=== PATIENT | female | born 1980 | race Caucasian/White ===

== ENCOUNTER 2018-08-02 09:24 | Outpatient (CLI) | payer OTHER, SELFPAY ==
--- NOTE | 2018-08-07 16:22 | W.PREOPHP ---
Documented by User: Sylvia Garza 08/07/18 17:09 Documented by User: Sylvia Garza 08/07/18 17:09 Date of service: Ms. Parkinson is a 38-year-old female who presents to clinic for preoperative visit for scheduled left ulnar nerve decompression with Dr. Navarro on August 13, 2018. Patient is right-hand dominant. Patient reports onset of left finger numbness and tingling in summer 2017. Patient reports she was unable to feel anything with her left little finger and ring finger, she describes a constant numbness with occasional tingling that radiates from the palm out distally to the fingers. Patient reports she was dropping objects when symptoms first started. She was referred to neurology where she had nerve conduction studies done which showed moderate left ulnar denervation at the elbow and was referred to orthopedics. Patient was last seen in orthopedic clinic on July 17, 2018 at which time recommendations were nighttime bracing and surgery if she didn't have symptom improvement. Patient reports since she was last seen she has continued to have constant numbness and tingling of the left little finger and ring finger despite wrapping her elbow at night. She denies any change in her symptoms. She denies symptoms waking her up in the middle the night. Denies any numbness in her other 3 fingers. Pertinent Surgical Information Past medical history pertinent for situational anxiety, hypertriglyceridemia, abnormal uterine bleeding, cubital tunnel syndrome on the left Denies past medical history of: Hypertension, stroke, cardiac issues, angina, asthma, COPD, sleep apnea, renal issues, liver issues, hepatitis, gastrointestinal issues, ulcers, bleeding disorders, seizures, migraines, depression, diabetes, autoimmune disorders, thyroid issues Denies prior complications from surgery or anesthesia. Review of Systems Constitutional Eyes ENT Cardiovascular Respiratory Gastrointestinal Genitourinary Musculoskeletal Neurologic Psychiatric Allergic/Immunologic PFSH Family History Mother Depression Father Depression Hyperlipidemia Hypertension Sister Substance abuse Depression Grandmother Personal history of malignant neoplasm Grandmother Personal history of malignant neoplasm Medical History Abnormal uterine bleeding (AUB) (Acute) Social History household members: current occupational status: current occupation: frequency: duration: Smoking/Tobacco Use Status: alcohol intake: details: substance use type: seatbelt use: Surgical History History of dilation and curettage (Acute) History of right salpingo-oophorectomy (Acute) Endometrial Biopsy (05/16/18) Female Reproductive History Menstrual control method: Meds Home Medications Medication Instructions Recorded Confirmed Type [id number]-minerals 1 tab-cap PO DAILY tab-cap 02/26/13 08/07/18 History [Women's One Daily] ibuprofen 200 - 600 mg PO PRN PRN 08/02/18 08/07/18 History Allergies Allergy/AdvReac Type Severity Reaction Status Date / Time No Known Allergies Allergy Unverified 08/07/18 16:32 Exam Const General: HENMT Head: Ears: General nose exam: Face and sinus: Mouth: Teeth and gingiva: Throat: Eyes General: Pupils: EOM: Neck Neck: Carotids: Lymphatic: Resp Effort & Inspection: Auscultation: Cardio Heart Sounds: Pulses: GI Palpation: Auscultation: Skin General skin exam: Extrem Other: Left elbow examination: Skin is intact without areas of erythema, edema, lesions or rashes. Active range of motion yields full extension and flexion 140 degrees. Supination and pronation motions are intact and equal to contralateral side. Decreased sensation to light touch in ulnar nerve distribution. Sensation intact over radial and median nerve distribution. Tinel's sign at the elbow elicits tingling sensation in the palmar aspect of left little finger and left ring finger. Active range of motion of left hand is intact. Results Imaging Additional studies: Nerve conduction study from May 30, 2018?conclusion: Moderate left ulnar denervation at elbow Documented by User: Mat Navarro MD 08/08/18 06:37 Ms. Parkinson is a 38-year-old female who presents to clinic for preoperative visit for scheduled left ulnar nerve decompression with Dr. Navarro on August 13, 2018. Patient is right-hand dominant. Patient reports onset of left finger numbness and tingling in summer 2017. Patient reports she was unable to feel anything with her left little finger and ring finger, she describes a constant numbness with occasional tingling that radiates from the palm out distally to the fingers. Patient reports she was dropping objects when symptoms first started. She was referred to neurology where she had nerve conduction studies done which showed moderate left ulnar denervation at the elbow and was referred to orthopedics. Patient was last seen in orthopedic clinic on July 17, 2018 at which time recommendations were nighttime bracing and surgery if she didn't have symptom improvement. Patient reports since she was last seen she has continued to have constant numbness and tingling of the left little finger and ring finger despite wrapping her elbow at night. She denies any change in her symptoms. She denies symptoms waking her up in the middle the night. Denies any numbness in her other 3 fingers. PFSH Family History Mother Depression Father Depression Hyperlipidemia Hypertension Sister Substance abuse Depression Grandmother Personal history of malignant neoplasm Grandmother Personal history of malignant neoplasm Medical History Abnormal uterine bleeding (AUB) (Acute) Social History household members: family current occupational status: employed current occupation: [employer] - [employer] frequency: 5-6 times per week duration: 45-60 minutes/day Smoking/Tobacco Use Status: Current every day tobacco type: cigarettes alcohol intake: current alcohol intake frequency: a few times a week Alcohol type: wine details: 1-2 weekly substance use type: does not use seatbelt use: always Surgical History History of dilation and curettage (Acute) History of right salpingo-oophorectomy (Acute) Endometrial Biopsy (05/16/18) Meds Home Medications Medication Instructions Recorded Confirmed Type [id number]-minerals 1 tab-cap PO DAILY tab-cap 02/26/13 08/07/18 History [Women's One Daily] ibuprofen 200 - 600 mg PO PRN PRN 08/02/18 08/07/18 History Allergies Allergy/AdvReac Type Severity Reaction Status Date / Time No Known Allergies Allergy Unverified 08/07/18 16:32 Documented by User: Mat Navarro MD 08/08/18 06:37 Documented by User: Sylvia Garza 08/07/18 17:09 Date of service: Ms. Parkinson is a 38-year-old female who presents to clinic for preoperative visit for scheduled left ulnar nerve decompression with Dr. Navarro on August 13, 2018. Patient is right-hand dominant. Patient reports onset of left finger numbness and tingling in summer 2017. Patient reports she was unable to feel anything with her left little finger and ring finger, she describes a constant numbness with occasional tingling that radiates from the palm out distally to the fingers. Patient reports she was dropping objects when symptoms first started. She was referred to neurology where she had nerve conduction studies done which showed moderate left ulnar denervation at the elbow and was referred to orthopedics. Patient was last seen in orthopedic clinic on July 17, 2018 at which time recommendations were nighttime bracing and surgery if she didn't have symptom improvement. Patient reports since she was last seen she has continued to have constant numbness and tingling of the left little finger and ring finger despite wrapping her elbow at night. She denies any change in her symptoms. She denies symptoms waking her up in the middle the night. Denies any numbness in her other 3 fingers. Pertinent Surgical Information Past medical history pertinent for situational anxiety, hypertriglyceridemia, abnormal uterine bleeding, cubital tunnel syndrome on the left Denies past medical history of: Hypertension, stroke, cardiac issues, angina, asthma, COPD, sleep apnea, renal issues, liver issues, hepatitis, gastrointestinal issues, ulcers, bleeding disorders, seizures, migraines, depression, diabetes, autoimmune disorders, thyroid issues Denies prior complications from surgery or anesthesia. Review of Systems Constitutional Eyes ENT Cardiovascular Respiratory Gastrointestinal Genitourinary Musculoskeletal Neurologic Psychiatric Allergic/Immunologic PFSH Family History Mother Depression Father Depression Hyperlipidemia Hypertension Sister Substance abuse Depression Grandmother Personal history of malignant neoplasm Grandmother Personal history of malignant neoplasm Medical History Abnormal uterine bleeding (AUB) (Acute) Social History household members: current occupational status: current occupation: frequency: duration: Smoking/Tobacco Use Status: alcohol intake: details: substance use type: seatbelt use: Surgical History History of dilation and curettage (Acute) History of right salpingo-oophorectomy (Acute) Endometrial Biopsy (05/16/18) Female Reproductive History Menstrual control method: Meds Home Medications Medication Instructions Recorded Confirmed Type [id number]-minerals 1 tab-cap PO DAILY tab-cap 02/26/13 08/07/18 History [Women's One Daily] ibuprofen 200 - 600 mg PO PRN PRN 08/02/18 08/07/18 History Allergies Allergy/AdvReac Type Severity Reaction Status Date / Time No Known Allergies Allergy Unverified 08/07/18 16:32 Exam Const General: HENMT Head: Ears: General nose exam: Face and sinus: Mouth: Teeth and gingiva: Throat: Eyes General: Pupils: EOM: Neck Neck: Carotids: Lymphatic: Resp Effort & Inspection: Auscultation: Cardio Heart Sounds: Pulses: GI Palpation: Auscultation: Skin General skin exam: Extrem Other: Left elbow examination: Skin is intact without areas of erythema, edema, lesions or rashes. Active range of motion yields full extension and flexion 140 degrees. Supination and pronation motions are intact and equal to contralateral side. Decreased sensation to light touch in ulnar nerve distribution. Sensation intact over radial and median nerve distribution. Tinel's sign at the elbow elicits tingling sensation in the palmar aspect of left little finger and left ring finger. Active range of motion of left hand is intact. Results Imaging Additional studies: Nerve conduction study from May 30, 2018?conclusion: Moderate left ulnar denervation at elbow Documented by User: Mat Navarro MD 08/08/18 06:37 Ms. Parkinson is a 38-year-old female who presents to clinic for preoperative visit for scheduled left ulnar nerve decompression with Dr. Navarro on August 13, 2018. Patient is right-hand dominant. Patient reports onset of left finger numbness and tingling in summer 2017. Patient reports she was unable to feel anything with her left little finger and ring finger, she describes a constant numbness with occasional tingling that radiates from the palm out distally to the fingers. Patient reports she was dropping objects when symptoms first started. She was referred to neurology where she had nerve conduction studies done which showed moderate left ulnar denervation at the elbow and was referred to orthopedics. Patient was last seen in orthopedic clinic on July 17, 2018 at which time recommendations were nighttime bracing and surgery if she didn't have symptom improvement. Patient reports since she was last seen she has continued to have constant numbness and tingling of the left little finger and ring finger despite wrapping her elbow at night. She denies any change in her symptoms. She denies symptoms waking her up in the middle the night. Denies any numbness in her other 3 fingers. PFSH Family History Mother Depression Father Depression Hyperlipidemia Hypertension Sister Substance abuse Depression Grandmother Personal history of malignant neoplasm Grandmother Personal history of malignant neoplasm Medical History Abnormal uterine bleeding (AUB) (Acute) Social History household members: family current occupational status: employed current occupation: [employer] - [employer] frequency: 5-6 times per week duration: 45-60 minutes/day Smoking/Tobacco Use Status: Current every day tobacco type: cigarettes alcohol intake: current alcohol intake frequency: a few times a week Alcohol type: wine details: 1-2 weekly substance use type: does not use seatbelt use: always Surgical History History of dilation and curettage (Acute) History of right salpingo-oophorectomy (Acute) Endometrial Biopsy (05/16/18) Meds Home Medications Medication Instructions Recorded Confirmed Type [id number]-[id number]-minerals 1 tab-cap PO DAILY tab-cap 02/26/13 08/07/18 History [Women's One Daily] ibuprofen 200 - 600 mg PO PRN PRN 08/02/18 08/07/18 History Allergies Allergy/AdvReac Type Severity Reaction Status Date / Time No Known Allergies Allergy Unverified 08/07/18 16:32
--- NOTE | 2018-08-07 16:32 | HPE_ITS ---
Addendum entered and electronically signed by Sylvia Garza 08/07/18 17:09: Error was made under Review of Systems - Musculoskeletal Correction: Review of Systems - Musculoskeletal: Reports as per HPI, reports numbness, reports tingling Original Note: Documented by User: Sylvia Garza 08/07/18 17:09 Documented by User: Sylvia Garza 08/07/18 17:09 Date of service: Ms. Parkinson is a 38-year-old female who presents to clinic for preoperative visit for scheduled left ulnar nerve decompression with Dr. Navarro on August 13, 2018. Patient is right-hand dominant. Patient reports onset of left finger numbness and tingling in summer 2017. Patient reports she was unable to feel anything with her left little finger and ring finger, she describes a constant numbness with occasional tingling that radiates from the palm out distally to the fingers. Patient reports she was dropping objects when symptoms first started. She was referred to neurology where she had nerve conduction studies done which showed moderate left ulnar denervation at the elbow and was referred to orthopedics. Patient was last seen in orthopedic clinic on July 17, 2018 at which time recommendations were nighttime bracing and surgery if she didn't have symptom improvement. Patient reports since she was last seen she has continued to have constant numbness and tingling of the left little finger and ring finger despite wrapping her elbow at night. She denies any change in her symptoms. She denies symptoms waking her up in the middle the night. Denies any numbness in her other 3 fingers. Pertinent Surgical Information Past medical history pertinent for situational anxiety, hypertriglyceridemia, abnormal uterine bleeding, cubital tunnel syndrome on the left Denies past medical history of: Hypertension, stroke, cardiac issues, angina, asthma, COPD, sleep apnea, renal issues, liver issues, hepatitis, gastrointestinal issues, ulcers, bleeding disorders, seizures, migraines, depression, diabetes, autoimmune disorders, thyroid issues Denies prior complications from surgery or anesthesia. Review of Systems Constitutional Eyes ENT Cardiovascular Respiratory Gastrointestinal Genitourinary Musculoskeletal Neurologic Psychiatric Allergic/Immunologic PFSH Family History Mother Depression Father Depression Hyperlipidemia Hypertension Sister Substance abuse Depression Grandmother Personal history of malignant neoplasm Grandmother Personal history of malignant neoplasm Medical History Abnormal uterine bleeding (AUB) (Acute) Social History household members: current occupational status: current occupation: frequency: duration: Smoking/Tobacco Use Status: alcohol intake: details: substance use type: seatbelt use: Surgical History History of dilation and curettage (Acute) History of right salpingo-oophorectomy (Acute) Endometrial Biopsy (05/16/18) Female Reproductive History Menstrual control method: Meds Home Medications Medication Instructions Recorded Confirmed Type kwapiptwdzxs-Va-owda-minerals 1 tab-cap PO DAILY tab-cap 02/26/13 08/07/18 History [Women's One Daily] ibuprofen 200 - 600 mg PO PRN PRN 08/02/18 08/07/18 History Allergies Allergy/AdvReac Type Severity Reaction Status Date / Time No Known Allergies Allergy Unverified 08/07/18 16:32 Exam Const General: HENMT Head: Ears: General nose exam: Face and sinus: Mouth: Teeth and gingiva: Throat: Eyes General: Pupils: EOM: Neck Neck: Carotids: Lymphatic: Resp Effort & Inspection: Auscultation: Cardio Heart Sounds: Pulses: GI Palpation: Auscultation: Skin General skin exam: Extrem Other: Left elbow examination: Skin is intact without areas of erythema, edema, lesions or rashes. Active range of motion yields full extension and flexion 140 degrees. Supination and pronation motions are intact and equal to contralateral side. Decreased sensation to light touch in ulnar nerve distribution. Sensation intact over radial and median nerve distribution. Tinel's sign at the elbow elicits tingling sensation in the palmar aspect of left little finger and left ring finger. Active range of motion of left hand is intact. Results Imaging Additional studies: Nerve conduction study from May 30, 2018?conclusion: Moderate left ulnar denervation at elbow Documented by User: Mat Navarro MD 08/08/18 06:37 Ms. Parkinson is a 38-year-old female who presents to clinic for preoperative visit for scheduled left ulnar nerve decompression with Dr. Navarro on August 13, 2018. Patient is right-hand dominant. Patient reports onset of left finger numbness and tingling in summer 2017. Patient reports she was unable to feel anything with her left little finger and ring finger, she describes a constant numbness with occasional tingling that radiates from the palm out distally to the fingers. Patient reports she was dropping objects when symptoms first started. She was referred to neurology where she had nerve conduction studies done which showed moderate left ulnar denervation at the elbow and was referred to orthopedics. Patient was last seen in orthopedic clinic on July 17, 2018 at which time recommendations were nighttime bracing and surgery if she didn't have symptom improvement. Patient reports since she was last seen she has continued to have constant numbness and tingling of the left little finger and ring finger despite wrapping her elbow at night. She denies any change in her symptoms. She denies symptoms waking her up in the middle the night. Denies any numbness in her other 3 fingers. PFSH Family History Mother Depression Father Depression Hyperlipidemia Hypertension Sister Substance abuse Depression Grandmother Personal history of malignant neoplasm Grandmother Personal history of malignant neoplasm Medical History Abnormal uterine bleeding (AUB) (Acute) Social History household members: family current occupational status: employed current occupation: [employer] - [employer] frequency: 5-6 times per week duration: 45-60 minutes/day Smoking/Tobacco Use Status: Current every day tobacco type: cigarettes alcohol intake: current alcohol intake frequency: a few times a week Alcohol type: wine details: 1-2 weekly substance use type: does not use seatbelt use: always Surgical History History of dilation and curettage (Acute) History of right salpingo-oophorectomy (Acute) Endometrial Biopsy (05/16/18) Meds Home Medications Medication Instructions Recorded Confirmed Type obeomzsfnzot-Sh-feue-minerals 1 tab-cap PO DAILY tab-cap 02/26/13 08/07/18 History [Women's One Daily] ibuprofen 200 - 600 mg PO PRN PRN 08/02/18 08/07/18 History Allergies Allergy/AdvReac Type Severity Reaction Status Date / Time No Known Allergies Allergy Unverified 08/07/18 16:32 Documented by User: Mat Navarro MD 08/08/18 06:37 Documented by User: Sylvia Garza 08/07/18 17:09 Date of service: Ms. Parkinson is a 38-year-old female who presents to clinic for preoperative visit for scheduled left ulnar nerve decompression with Dr. Navarro on August 13, 2018. Patient is right-hand dominant. Patient reports onset of left finger numbness and tingling in summer 2017. Patient reports she was unable to feel anything with her left little finger and ring finger, she describes a constant numbness with occasional tingling that radiates from the palm out distally to the fingers. Patient reports she was dropping objects when symptoms first started. She was referred to neurology where she had nerve conduction studies done which showed moderate left ulnar denervation at the elbow and was referred to orthopedics. Patient was last seen in orthopedic clinic on July 17, 2018 at which time recommendations were nighttime bracing and surgery if she didn't have symptom improvement. Patient reports since she was last seen she has continued to have constant numbness and tingling of the left little finger and ring finger despite wrapping her elbow at night. She denies any change in her symptoms. She denies symptoms waking her up in the middle the night. Denies any numbness in her other 3 fingers. Pertinent Surgical Information Past medical history pertinent for situational anxiety, hypertriglyceridemia, abnormal uterine bleeding, cubital tunnel syndrome on the left Denies past medical history of: Hypertension, stroke, cardiac issues, angina, asthma, COPD, sleep apnea, renal issues, liver issues, hepatitis, gastrointestinal issues, ulcers, bleeding disorders, seizures, migraines, depression, diabetes, autoimmune disorders, thyroid issues Denies prior complications from surgery or anesthesia. Review of Systems Constitutional Eyes ENT Cardiovascular Respiratory Gastrointestinal Genitourinary Musculoskeletal Neurologic Psychiatric Allergic/Immunologic PFSH Family History Mother Depression Father Depression Hyperlipidemia Hypertension Sister Substance abuse Depression Grandmother Personal history of malignant neoplasm Grandmother Personal history of malignant neoplasm Medical History Abnormal uterine bleeding (AUB) (Acute) Social History household members: current occupational status: current occupation: frequency: duration: Smoking/Tobacco Use Status: alcohol intake: details: substance use type: seatbelt use: Surgical History History of dilation and curettage (Acute) History of right salpingo-oophorectomy (Acute) Endometrial Biopsy (05/16/18) Female Reproductive History Menstrual control method: Meds Home Medications Medication Instructions Recorded Confirmed Type cijbkaubqibw-Ut-onmu-minerals 1 tab-cap PO DAILY tab-cap 02/26/13 08/07/18 History [Women's One Daily] ibuprofen 200 - 600 mg PO PRN PRN 08/02/18 08/07/18 History Allergies Allergy/AdvReac Type Severity Reaction Status Date / Time No Known Allergies Allergy Unverified 08/07/18 16:32 Exam Const General: HENMT Head: Ears: General nose exam: Face and sinus: Mouth: Teeth and gingiva: Throat: Eyes General: Pupils: EOM: Neck Neck: Carotids: Lymphatic: Resp Effort & Inspection: Auscultation: Cardio Heart Sounds: Pulses: GI Palpation: Auscultation: Skin General skin exam: Extrem Other: Left elbow examination: Skin is intact without areas of erythema, edema, lesions or rashes. Active range of motion yields full extension and flexion 140 degrees. Supination and pronation motions are intact and equal to contralateral side. Decreased sensation to light touch in ulnar nerve distribution. Sensation intact over radial and median nerve distribution. Tinel's sign at the elbow elicits tingling sensation in the palmar aspect of left little finger and left ring finger. Active range of motion of left hand is intact. Results Imaging Additional studies: Nerve conduction study from May 30, 2018?conclusion: Moderate left ulnar denervation at elbow Documented by User: Mat Navarro MD 08/08/18 06:37 Ms. Parkinson is a 38-year-old female who presents to clinic for preoperative visit for scheduled left ulnar nerve decompression with Dr. Navarro on August 13, 2018. Patient is right-hand dominant. Patient reports onset of left finger numbness and tingling in summer 2017. Patient reports she was unable to feel anything with her left little finger and ring finger, she describes a constant numbness with occasional tingling that radiates from the palm out distally to the fingers. Patient reports she was dropping objects when symptoms first started. She was referred to neurology where she had nerve conduction studies done which showed moderate left ulnar denervation at the elbow and was referred to orthopedics. Patient was last seen in orthopedic clinic on July 17, 2018 at which time recommendations were nighttime bracing and surgery if she didn't have symptom improvement. Patient reports since she was last seen she has continued to have constant numbness and tingling of the left little finger and ring finger despite wrapping her elbow at night. She denies any change in her symptoms. She denies symptoms waking her up in the middle the night. Denies any numbness in her other 3 fingers. PFSH Family History Mother Depression Father Depression Hyperlipidemia Hypertension Sister Substance abuse Depression Grandmother Personal history of malignant neoplasm Grandmother Personal history of malignant neoplasm Medical History Abnormal uterine bleeding (AUB) (Acute) Social History household members: family current occupational status: employed current occupation: [employer] frequency: 5-6 times per week duration: 45-60 minutes/day Smoking/Tobacco Use Status: Current every day tobacco type: cigarettes alcohol intake: current alcohol intake frequency: a few times a week Alcohol type: wine details: 1-2 weekly substance use type: does not use seatbelt use: always Surgical History History of dilation and curettage (Acute) History of right salpingo-oophorectomy (Acute) Endometrial Biopsy (05/16/18) Meds Home Medications Medication Instructions Recorded Confirmed Type nuajowyzghwd-Mg-xmhj-minerals 1 tab-cap PO DAILY tab-cap 02/26/13 08/07/18 History [Women's One Daily] ibuprofen 200 - 600 mg PO PRN PRN 08/02/18 08/07/18 History Allergies Allergy/AdvReac Type Severity Reaction Status Date / Time No Known Allergies Allergy Unverified 08/07/18 16:32
--- NOTE | 2018-08-12 12:42 | HPE_ITS ---
Documented by User: Sylvia Garza 08/12/18 12:52 Date of service: 08/07/18 Assessment and Plan (1) Cubital tunnel syndrome on left: Current visit: Yes Status: Acute Plan: Reviewed surgical technique and pertinent anatomy with patient in detail. Discussed benefits and risks of surgery including but not limited to risk of infection, damage to soft tissue/nerves/blood vessels. Educated patient that surgery may also include ulnar nerve transposition. After discussion, patient reports she understands risks and possibility of nerve transposition and wishes to proceed with procedure. Patient had opportunity to have questions answered to her satisfaction. Patient will continue with her preoperative scheduled visits. She will contact the office if any issues arise. Immediately following her surgery with Dr. Navarro, she will remain in the operating room and have left salpingectomy. She will be scheduled for left ulnar nerve decompression and possible nerve transposition with Dr. Navarro. History of Present Illness Narrative: Ms. Parkinson is a 38-year-old female who presents today for preoperative visit for scheduled left ulnar nerve decompression with Dr. Navarro on August 13, 2018. Patient is right-hand dominant. Patient reports onset of left finger numbness and tingling in summer 2017. Patient reports she was unable to feel anything with her left little finger and ring finger, she describes a constant numbness with occasional tingling that radiates from the palm out distally to her fingers. Patient reports she was dropping objects when symptoms first started. She was referred to the neurology where she had nerve conduction studies done which showed a moderate left ulnar denervation at the elbow and was referred to orthopedics. Patient was last seen in orthopedic clinic on July 17, 2018 at which time recommendations were nighttime bracing and surgery if she does not have improvement. Patient reports since she was last seen she is continued to have constant numbness and tingling of the left little finger and ring finger despite wrapping her elbow nightly. Patient denies any change in her symptoms. She denies any symptoms waking her up in the middle the night. Denies any numbness in her other three fingers. Pertinent Surgical Information Past medical history pertinent for situational anxiety, hypertriglyceridemia, abnormal uterine bleeding, cubital tunnel syndrome on the left Denies past medical history of: Hypertension, stroke, cardiac issues, angina, asthma, COPD, sleep apnea, renal issues, liver issues, hepatitis, gastrointestinal issues, ulcers, bleeding disorders, seizures, migraines, depression, diabetes, autoimmune disorders, thyroid issues Denies prior complications from surgery or anesthesia. Review of Systems Review of Systems All systems reviewed & are unremarkable except as noted in HPI and below Constitutional Denies fever(s), Denies frequent falls and Denies headache(s) Eyes Denies change in vision ENT Denies headache(s) Cardiovascular Denies chest pain, Denies rapid heart rate, Denies irregular heart rhythm, Denies dyspnea, Denies dyspnea on exertion and Denies slow heart rate Respiratory Denies dyspnea, Denies dyspnea on exertion and Denies wheezing Gastrointestinal Denies abdominal pain, Denies melena, Denies hematochezia, Denies constipation, Denies diarrhea, Denies nausea and Denies vomiting Genitourinary Denies hematuria, Denies dysuria and Denies urinary urgency Musculoskeletal Reports as per HPI, Reports numbness (Left little finger and ring finger) and Reports tingling (Left middle finger and ring finger) Neurologic Denies frequent falls, Denies headache(s), Reports numbness (Left little finger and ring finger) and Reports tingling (Left middle finger and ring finger) Psychiatric Denies anxiety and Denies depression Allergic/Immunologic Denies wheezing PFSH Family History Mother Depression Father Depression Hyperlipidemia Hypertension Sister Substance abuse Depression Grandmother Personal history of malignant neoplasm Grandmother Personal history of malignant neoplasm Medical History Vaginal bleeding, abnormal (Acute 04/26/18) Tobacco use (Acute 03/03/16) Situational anxiety (Acute 11/12/17) Paresthesias in left hand (Acute 06/19/18) Hypertriglyceridemia (Acute 03/03/16) Encounter for surveillance of contraceptives, unspecified (Acute 06/19/18) Request for sterilization (Acute) Cubital tunnel syndrome on left (Acute) Abnormal uterine bleeding (AUB) (Acute) Social History household members: family current occupational status: employed current occupation: [employer] - [employer] frequency: 5-6 times per week duration: 45-60 minutes/day Smoking/Tobacco Use Status: Current every day tobacco type: cigarettes alcohol intake: current alcohol intake frequency: a few times a week Alcohol type: wine details: 1-2 weekly substance use type: does not use seatbelt use: always Surgical History History of dilation and curettage (Acute) History of right salpingo-oophorectomy (Acute) Endometrial Biopsy (05/16/18) Female Reproductive History Menstrual control method: none Meds Home Medications Medication Instructions Recorded Confirmed Type ynymchdcyneg-Ob-ejjp-minerals 1 tab-cap PO DAILY tab-cap 02/26/13 08/07/18 History [Women's One Daily] ibuprofen 200 - 600 mg PO PRN PRN 08/02/18 08/07/18 History Allergies Allergy/AdvReac Type Severity Reaction Status Date / Time No Known Allergies Allergy Unverified 08/07/18 16:32 Exam Const General: cooperative and no acute distress HENMT Head: normal to inspection, normocephalic and atraumatic Ears: external ears normal General nose exam: external nose normal and no nasal discharge Face and sinus: face symmetric Mouth: oral mucosae normal, lip normal, tongue normal and moist mucous membranes Teeth and gingiva: dentition normal Throat: posterior oropharynx normal Eyes General: appearance normal, both eyes and all related structures Pupils: PERRL EOM: EOM intact bilaterally Neck Neck: trachea midline Carotids: normal carotid upstroke Lymphatic: no lymphadenopathy noted Resp Effort & Inspection: normal respiratory effort and able to speak in complete sentences Auscultation: clear to auscultation bilaterally, no rales, no rhonchi and no wheezes Cardio Heart Sounds: S1 normal, S2 normal, no murmurs, no rubs and no other Pulses: radial pulses present bilaterally GI Palpation: soft, no hepatosplenomegaly and nontender Auscultation: normal bowel sounds Skin General skin exam: no rashes or lesions noted Extrem Other: Left elbow examination: Skin is intact without areas of lesions, rash, edema or erythema. Active range of motion is full extension and flexion of 140 degrees. Supination and pronation motions are intact and equal to contralateral side. Decreased sensation to light touch in ulnar nerve distribution, sensation intact in median and radial nerve distribution. Tinel' s sign at the elbow elicits tingling sensation in the palmar aspect of the left little finger and left ring finger. No tingling elicited with compression of the median nerve. Radial pulses were 2+ bilaterally. Active range of motion of left hand is intact and equal contralateral side. Results Imaging Additional studies: Nerve conduction study from May 30, 2018?conclusion: Moderate left ulnar denervation at the elbow
== END 2018-08-02 09:44 ==
PROVIDERS: PCP Family Medicine; Visit Provider Student in an Organized Health Care Education/Training Program
DX: G56.22 Lesion of ulnar nerve, left upper limb (principal); Z01.818 Encounter for other preprocedural examination
CPT/HCPCS: NC

== ENCOUNTER 2018-08-12 07:44 | Outpatient (CLI) | payer OTHER, SELFPAY ==
[2018-08-12 13:38] LABS: Abs Immature Grans 0.02 k/cumm (0.0-0.09); Absolute Basophil Count 0.02 k/cumm (0.0-0.2); Absolute Eosinophil Count 0.06 k/cumm (0.0-0.7); Absolute Lymphocyte Count 2.09 k/cumm (1.2-3.4); Absolute Neutrophil Count 5.73 k/cumm (1.2-6.7); Basophils % 0.2; Eosinophils % 0.7; HCT 41.5 % (36.0-46.0); HGB 14.1 g/dL (12.0-15.5); Immature Grans % 0.2; Lymphocytes % 25.1; Mean Corpuscular Hemoglobin 33.3 pg (27.0-33.0); Mean Corpuscular Volume 97.9 fL (80-95); Mean Platelet Volume 9.9 fL (8.0-11.0); Monocytes % 4.8; Platelet Count 198 x1000/uL (130-400); RBC 4.24 m/cumm (4.00-5.20); RBC Distribution Width 12.8 % (11.7-14.6); White Blood Cell Count 8.32 k/cumm (4.4-10.8)
[2018-08-12 14:36] LABS: HCG Quant, Pregnancy < 1 mIU/mL (1-3)
== END 2018-08-12 08:04 ==
PROVIDERS: Obstetrics & Gynecology Gynecology; PCP Family Medicine; Visit Provider Student in an Organized Health Care Education/Training Program
DX: Z01.812 Encounter for preprocedural laboratory examination (principal); Z30.2 Encounter for sterilization; Z01.84 Encounter for antibody response examination
CPT/HCPCS: 36415; 86850; 86900; 86901; 84702; 85025

== ENCOUNTER 2018-08-13 10:32 | Day surgery (SDC) | payer OTHER, SELFPAY ==
[2018-08-13] VITALS (7 sets, daily range): BP systolic 111–140; BP diastolic 61–94; PULSE 75–82; RESP 15–24; TEMP 36.4–37.8; O2SAT 96–100
[2018-08-13] MEDS: Lactated Ringers 1,000 ML 80 ML IV (11:22)
--- NOTE | 2018-08-13 11:50 | W.PM.DSUDISC ---
Discharge Plan Disposition Patient Disposition: HOME Condition: Good Discharge Details Attending Provider: Mat Navarro Primary Care Provider: Judson Garcia Home Meds and New Rx's Prescriptions: New oxycodone 5 mg tablet 5 mg PO Q4H Qty: 12 RF: 0 ibuprofen 600 mg tablet 600 mg PO TID PRNQty: 90 RF: 3 acetaminophen 500 mg capsule 1,000 mg PO Q8H PRN (Reason: pain) Qty: 90 RF: 0 Continue nupgbnpurhpq-Rm-mprg-minerals [Women's One Daily] 1 EACH tablet 1 tab-cap PO DAILY RF: 0 Discontinued ibuprofen 200 mg Tablet 200 - 600 mg PO PRN PRNRF: 0 Discharge Instructions Additional Instructions: ULNAR NERVE DECOMPRESSION Activity:You should wear the sling for comfort. You may begin light activity with the left arm but no forceful or repetitive activities. You may use your fingers as tolerated. You may come out of the sling. Dressings: The initial dressing should stay on for 48-72 hours. After this, you may remove it and the wound may get wet. You should keep it covered with light gauze dressing. Medications: - You have been prescribed Tyloenol and Ibuprofen for baseline pain control - If you have additional pain you may take Oxycodone for breakthrough pain. Follow-up: 10 days Equipment/Supplies: Sling Activity:: Elevate Remove Dressings/Wound Care:: 72 hours Shower/Bathe:: 72 hours Diet:: As Tolerated Discharge Orders Discharge Orders: Discharge Order (Routine); Ordered 08/13/18 Ordered By: Mat Navarro DS: Diagnosis Discharge Diagnosis (1) Vaginal bleeding, abnormal: Status: Acute (2) Cubital tunnel syndrome on left: Status: Acute
--- NOTE | 2018-08-13 12:06 | W.PM.HP.N ---
Date of service: 08/13/18 Time of Service: 12:06 Assessment and Plan (1) Request for sterilization: Current visit: Yes Status: Acute Informed consent was obtained her questions were answered she will undergo the bilateral laparoscopic salpingectomy concomitant with her orthopedic procedure. History of Present Illness Chief Complaint: Patient is a 38-year old female who desires permanent sterilization Narrative: Patient has been followed Center for evaluation of abnormal uterine bleeding while using a Nexplanon device. After the Nexplanon was removed her bleeding subsided and she has had regular cycles. She does not desire any future pregnancies she cannot conceive of a wanting any children in the future even if her life circumstances were to change. She has used LAR C in the past and declines to use them again. The previous encounter regarding the risks and benefits of a permanent sterilization she was counseled regarding the risk of bleeding damage to surrounding structures including blood vessels bowel and bladder the possibility of infection and the risk of damage to surrounding structures upon entry into the abdominal cavity trocar insertion. Patient and the risk and benefits of proceed with tubal sterilization. Review of Systems Constitutional Reports system reviewed and no additional complaints, except as docu Cardiovascular Reports system reviewed and no additional complaints, except as docu Respiratory Reports system reviewed and no additional complaints, except as docu Gastrointestinal Reports system reviewed and no additional complaints, except as docu Genitourinary Reports system reviewed and no additional complaints, except as docu Musculoskeletal Reports numbness (Patient is scheduled for a procedure to be performed, with her tubal sterilization) Neurologic Reports numbness (Patient is scheduled for a procedure to be performed, with her tubal sterilization) PFSH Female Reproductive History Menstrual control method: none Meds Home Medications Medication Instructions Recorded Confirmed Type uwabrwsxyyjv-Iv-scwt-minerals 1 tab-cap PO DAILY tab-cap 02/26/13 08/13/18 History [Women's One Daily] acetaminophen 1,000 mg PO Q8H PRN #90 cap 08/13/18 Rx ibuprofen 600 mg PO TID PRN #90 tab 08/13/18 Rx oxycodone 5 mg PO Q4H #12 tab 08/13/18 Rx Allergies Allergy/AdvReac Type Severity Reaction Status Date / Time No Known Allergies Allergy Unverified 08/13/18 10:44 Exam Const General: healthy appearing and comfortable Nutritional Appearance: average body habitus Orientation: alert, awake and oriented x3 Resp Effort & Inspection: normal respiratory effort Auscultation: clear to auscultation bilaterally Cardio Jugular venous pressure: no JVD Rate: regular rate Rhythm: regular rhythm Heart Sounds: S1 normal and S2 normal GI Inspection: normal to inspection Palpation: soft and no hepatosplenomegaly General: deferred Skin General skin exam: no rashes or lesions noted Results Last Vital Signs Temp 98.8 F 08/13/18 10:49 Pulse 77 08/13/18 10:49 Resp 16 08/13/18 10:49 BP 130/79 08/13/18 10:49 Pulse Ox 96 08/13/18 10:49
[2018-08-13] MEDS: Bupivacaine 0.25% Pres-Free 10 ML VIAL (13:18)
--- NOTE | 2018-08-13 13:52 | FALL_PTH ---
PATIENT: Mirela Parkinson LOC: [facility] U#:[id number] AGE/SX: 38/F ROOM: RE08/13/[address]: Mat Navarro MD : 1980 BED: DIS: 08/13/2018 SPEC #: [id number] RECD: 08/13/18 17:57 STATUS: RADHA REQ #: [id number] KESHAV: 08/13/18 13:[address]: Francisca Magdaleno DEPT: Surgical Specimen RECD BY: Lynne Paredes ENTERED: 08/13/18 17:58 SP TYPE: Fall OTHR DR: Judson Garcia MD Tissues: 1 - FALLOPIAN TUBE (STERILIZATION) Procedures: GROSS AND MICRO LEVEL 2 Comments: [id number]
[2018-08-13] MEDS: oxyCODONE 5 MG TAB PO (15:36)
--- NOTE | 2018-08-14 06:54 | ROE_ITS ---
REPORT OF OPERATIVE PROCEDURE DATE OF PROCEDURE August 13, 2018 PREOPERATIVE DIAGNOSIS Multiparity desiring permanent sterilization. POSTOPERATIVE DIAGNOSIS Multiparity desiring permanent sterilization. PROCEDURE Laparoscopic left salpingectomy. SURGEON Francisca Magdaleno M.D. IMPREGNATION OPERATOR ESTEBAN Baez ANESTHESIA General endotracheal, by Ana Stockton, LEATHER SKINNER FLUIDS 500 cc of crystalloid during my portion of the procedure. DRAINS None. ESTIMATED BLOOD LOSS None. URINE OUTPUT 200 cc of clear mickie urine via in-and- out catheterization at the beginning of the procedure. COMPLICATIONS None. SPECIMENS Left fallopian tube to pathology. DISPOSITION Awaken, extubated and transported to the Recovery Area in stable condition. INDICATIONS A 38-year-old 2, para 2 female, who desires permanent sterilization. She had tried long-actin g reversible contraception and has issues with abnormal uterine bleeding and had discontinued the LAR C. She was counseled regarding other alternative options, contraception and declined other methods. FINDINGS AT THE TIME OF SURGERY The uterus normal in appearance. The right fallopian tube was surgically absent from the uterine corn ua to the right ovary. The left fallopian tube appeared normal, as did the left ovary with a corpus luteum cyst. There was a small approximately 5 mm left lower quadrant ventral hernia with no evidence of adhesions. Normal appendix, normal upper abdomen. OPERATIVE PROCEDURE The patient underwent an ulnar nerve decompression performed by Dr. Navarro prior to my entry into [facility] Operating Room. At the time of my portion of the procedure, the ulnar nerve decompression was comp leted. Her left arm was supported and in a neurologically neutral position above her head and the pat ient was in the dorsal supine position on the Operating Room Table. An in-and-out urinary bladder ca theterization was performed with clear mickie urine obtained. She was prepped and draped in the usual sterile fashion. SCDs were in place. No antibiotics were required for this procedure. The umbilical f old was infiltrated with approximately 5 cc of 0.25% Marcaine without epinephrine, and an 11-mm verti dominga skin incision was made in the umbilical fold using a #11-blade. The underlying subcutaneous tissu e was dissected using blunt technique with Army/Emet retractors. Once the dissection to the level of the rectus fascia was performed, the rectus fascia was tented up with two Tereza clamps and incised, which allowed entry into the abdomen. The rectus fascia and the peritoneum surface of the incision we re then held with an interrupted suture of #0-Vicryl for the remainder of the case. A Gayla trocar a nd sleeve were then placed through this incision and pneumoperitoneum achieved. Intraabdominal place ment confirmed by use of the laparoscope. The patient was then placed in Trendelenburg. Under direct visualization, the 5-mm ports were placed 6 cm diagonal and inferior to the umbilical port site afte r the site was infiltrated with 0.25% Marcaine and incised with 11-mm scalpel blade. The abdomen was then carefully inspected with the above noted findings. A LigaSure bipolar cautery device was then in troduced and the left fallopian tube was followed out from it fimbriated end to the uterine cornua, c lamped, cauterized and transected at the uterine cornua. The mesosalpinx was then sequentially clampe d, cauterized and cut to the level of the fimbriated end, which was then carefully dissected away fro m the left ovary and clamped, cauterized and cut. The left fallopian tube was delivered through the 5 -mm port under direct visualization. The left pedicles were noted to be hemostatic. The pelvis was co pious irrigated with normal saline with no evidence of bleeding. The normal saline was aspirated and under direct visualization both trocars were removed. The 11-mm trocar and sleeve were then removed. Pneumoperitoneum reduced and the rectus fascia and peritenoneum sutures were re-approximated with exc ellent closure obtained of the rectus fascia. All skin of the port sites were then closed with subcut icular closure using 4-0 Monocryl. Both 5-mm incisions were reapproximated with skin glue and a dry sterile dressing was applied to the umbilical port site. The patient was awakened, extubated and wyatt sported to the Recovery Area in stable condition. All sponge, lap, needle counts were correct x2.
--- NOTE | 2018-08-14 09:25 | ROE_ITS ---
REPORT OF OPERATIVE PROCEDURE DATE OF SURGERY August 13, 2018 PREOPERATIVE DIAGNOSIS Left cubital tunnel syndrome. POSTOPERATIVE DIAGNOSIS Left cubital tunnel syndrome. SURGERY Left ulnar nerve decompression with anterior transposition. SURGEON Mat Navarro M.D. ENGINEERING CLERK Branden Baez FINDINGS There was compressed nerve, it seemed to be mostly through the Baker's ligament and the medial epicondyle, as well as between the two heads of the FCU. It was rel eased in full and the nerve was transposed anteriorly with a fascial sling supporting its anterior lo cation. ANESTHESIA General. ESTIMATED BLOOD LOSS Minimal. COMPLICATIONS None. DISPOSITION The patient tolerated the procedure well. She was later awakened from the anesthesia and taken to the PACU in stable condition. Following the left ulnar nerve compression and transposition, she had a l aparoscopic salpingectomy performed by Dr. Magdaleno. INDICATION FOR PROCEDURE Mirela is a 38-year old who I had seen in the office for left hand numbness and pain. She had nerve co nduction studies, which demonstrated a cubital tunnel syndrome on the left side. She had tried nonope rative treatment options including bracing. However, she had persistent symptoms. Given the disabilit y it was causing, I did offer operative intervention. I discussed the risks of the procedure to inclu de bleeding, infection, pain, stiffness, nerve subluxation, damage to the nerves, numbness, recurrent compression. Despite these risks, she elected to proceed. PROCEDURE DESCRIPTION Mirela was greeted in the preoperative holding area. Her identity was confirmed and the correct side was identified and marked. She was taken back to the Operating Room and placed in the supine position . A General anesthetic was administered. The left arm was placed on the Hand table. A nonsterile tour niquet was placed high up on the left arm outside of the surgical field. The left arm was then preppe d with ChloraPrep and draped in a standard fashion. Prophylactic antibiotics in the form of cefazoli n were given. A time-out was performed for safe surgery. The medial epicondyle was marked on the skin. I then injected the proposed surgical site with 0.5% bu pivacaine with epinephrine. An approximately 6-cm incision was then made just posterior to the medial epicondyle following the course of the ulnar nerve. The skin was then incised sharply. The deep tiss ues were bluntly dissected and branches of the medial antebrachial cutaneous nerve were identified an d protected. Once the medial epicondyle was identified, the ulnar nerve was easily seen. The sheath w as opened up. This was taken proximally first. The arcade of [place] was quite ridged and did have some compression on the ulnar nerve. This was released and the medial intermuscular septum was also r eleased. A freer was used the follow the course of the nerve and noted there was no further compressi on proximally. The dissection of the nerve around the medial epicondyle did show that it was quite ti ght through Baker's ligament. Additionally, it was quite tight all the way into the FCU muscle bentley ies to the first branch of the ulnar nerve. This was released and the fascia was released as well on top of it. A vessel loop was placed around the ulnar nerve. Circumferential dissection was used to al low mobility of the nerve. The nerve was tested multiple times to make sure there was no points of c ompression or kinks in the nerve. Once the nerve was fully decompressed, it was able to rest anterior ly to the medial epicondyle. I then used a knife to create a fascial sling based off the medial epico ndyle. This was stitched to the deep dermal layer underlying where I marked the medial epicondyle on the skin. Two #2-0 Vicryl sutures were used in its place to attach the fascial sling. The nerve reste d comfortably in the anterior space after this was done and it showed no signs of compression. The to urniquet was then released after 20 minutes. There was no excessive bleeding. The deep tissues were c losed with #3-0 Vicryl. The skin was closed with #4-0 Nylon. The wound was dressed with Xeroform, 4x4 s, ABD, Kerlix and an Thomas wrap. She was placed into a sling. All counts were correct. She was then re positioned for Dr. Magdaleno's procedure, laparoscopic salpingectomy . Please see Dr. Magdaleno's note for full details. Following Dr. Magdaleno's portion of this case, she was then taken back to the PACU in stable condition with no noted complications.
== END 2018-08-13 16:50 | disposition home or self-care (01) ==
PROVIDERS: Obstetrics & Gynecology Gynecology; PCP Family Medicine; Visit Provider Student in an Organized Health Care Education/Training Program
PROC: (CPT 64718; principal; 2018-08-13 11:45)
PROC: (CPT 64718; 2018-08-13 11:45)
PROC: (CPT 58661; 2018-08-13 11:45)
DX: G56.22 Lesion of ulnar nerve, left upper limb (principal); Z30.2 Encounter for sterilization; Z90.79 Acquired absence of other genital organ(s)
CPT/HCPCS: 58661; 64718; NC; 88302; J0131; J0690; J1100; J1885; J2250; J2405; J3010; L3650

== ENCOUNTER 2019-12-08 21:34 | Outpatient (REF) | payer OTHER, SELFPAY | END 2019-12-08 21:54 | LOC: LBN 21:34 | PROVIDERS: PCP Nurse Practitioner; Visit Provider Nurse Practitioner | DX: L02.415 Cutaneous abscess of right lower limb (principal) | CPT/HCPCS: 87070; 87205 ==

== ENCOUNTER 2019-12-18 02:19 | Outpatient (CLI) | payer OTHER, SELFPAY ==
--- NOTE | 2019-12-18 08:15 | DI.MAMMO_ITS ---
EXAM: MG MAMMO SCREENING CLINICAL HISTORY: screening, Z12.39. TECHNIQUE: Bilateral full field digital CC and MLO mammographic images were obtained with 3D tomosyn thesis and utilizing computer aided detection (CAD). COMPARISON: Available for comparison. FINDINGS: Masses/Architectural Distortion: There are scattered well-circumscribed nodules in both breasts. The re is a lobulated nodule in the posterior medial left breast. Microcalcifications: No suspicious pleomorphic-type are seen. Skin Thickening/Nipple Retraction: None. IMPRESSION: 1. Lobulated nodule in the posterior medial left breast. Spot compression views are requested. Ultr asound may be indicated at that time. 2. Additional views as described above. BI-RADS Cat 0 - Assessment Incomplete: Need additional imaging evaluation Breast Density - Category C - Heterogeneously dense The mammogram demonstrates the patient's breast tissue is dense. Dense breast tissue is very common a nd is not abnormal but dense breast tissue can make it harder to find cancer on a mammogram. Also, de nse breast tissue may increase their breast cancer risk. This information about the result of the [facility] mogram report was provided to the patient to raise their awareness. Use this report when you speak wi th the patient about their risks for breast cancer, which includes their family history. At that time , you may recommend for more screening tests (Ultrasound or MRI) as they might be useful based on the ir risk. A negative radiographic report should not delay biopsy if a dominant or clinically suspicious mass is present. Up to ten percent of cancers are not identified on mammography. A negative report may reinforce clinical impression. Adenosis and dense breasts may obscure an underlying neoplasm. False positive reports average 6 to 10%. Patient will receive a letter notifying them of these results.
== END 2019-12-18 02:39 ==
PROVIDERS: PCP Nurse Practitioner; Visit Provider Nurse Practitioner
DX: Z12.31 Encounter for screening mammogram for malignant neoplasm of breast (principal); R92.8 Other abnormal and inconclusive findings on diagnostic imaging of breast
CPT/HCPCS: 77063; 77067

== ENCOUNTER 2019-12-25 01:32 | Outpatient (CLI) | payer OTHER, SELFPAY ==
--- NOTE | 2019-12-25 | DI.MAMMO_ITS ---
EXAM: MAMMO SCREENING CALL BACK UNI AND US BREAST LT LIMITED CLINICAL HISTORY: F/U MAMMO, LOBULATED NODULE POSTERIOR MEDIAL LT BREAST TECHNIQUE: Ultrasound performed using standard protocol. COMPARISON: MAMMO SCREENING from 12/18/2019 FINDINGS: Additional views of the left breast: There is a mildly lobulated, circumscribed nodule in the medial left breast measuring 11 millimeters in greatest dimension. Left breast ultrasound: Left breast ultrasound shows a circumscribed ovoid hypoechoic lesion in the 9 o'clock position 11 centimeters from the nipple. It measures 11 x 8 x 6 millimeters. It is consiste nt with a fibroadenoma. IMPRESSION: BI-RADS category 2, negative mammogram with benign findings. Yearly screening mammography is recomme nded. BI-RADS Cat 2 - Benign Findings Breast Density - Category C - Heterogeneously dense DATA REPOSITORY:
== END 2019-12-25 01:52 ==
PROVIDERS: PCP Nurse Practitioner; Visit Provider Nurse Practitioner
DX: Z12.31 Encounter for screening mammogram for malignant neoplasm of breast (principal); R92.8 Other abnormal and inconclusive findings on diagnostic imaging of breast; N63.22 Unspecified lump in the left breast, upper inner quadrant; D24.2 Benign neoplasm of left breast
CPT/HCPCS: 76642; 77063; 77067

== ENCOUNTER 2020-05-13 11:34 | Outpatient (CLI) | payer OTHER, SELFPAY ==
--- NOTE | 2020-05-13 13:45 | DI.RAD_ITS ---
EXAM: XR FINGER RT INDEX INDICATION: Finger injury 1 month ago. Not better. S67.10XA CRUSHING INJURY. COMPARISON: No exams were available for comparison TECHNIQUE: 2D digital imaging was performed. FINDINGS: There is a fracture at the volar plate of the middle phalanx of the index finger which appears subac sandra. There is mild displacement of the fracture fragment slight separation at the articular surface. DATA REPOSITORY: Volar plate fracture of the middle phalanx, subacute. RADIATION DOSE DELIVERED:
== END 2020-05-13 11:54 ==
PROVIDERS: PCP Nurse Practitioner; Visit Provider Family Medicine
DX: S67.190D Crushing injury of right index finger, subsequent encounter (principal); S62.620A Displaced fracture of middle phalanx of right index finger, initial encounter for closed fracture
CPT/HCPCS: 73140

== ENCOUNTER 2021-04-27 13:04 | Outpatient (CLI) | payer OTHER, SELFPAY ==
--- NOTE | 2021-04-27 13:00 | DI.RAD_ITS ---
Exam(s) XR SHOULDER RT COMPLETE 2+V EXAM: XR SHOULDER RT COMPLETE 2+V CLINICAL HISTORY: right shoulder pain. TECHNIQUE: 2D digital imaging was performed. COMPARISON: Prior x-rays March 2014 FINDINGS: No evidence of fracture or dislocation or abnormal soft tissue calcifications. No degenerative reyna es in the glenohumeral and AC joints. No os acromiale. Bone density is normal. IMPRESSION: No significant radiographic findings. DATA REPOSITORY: RADIATION DOSE DELIVERED:
== END 2021-04-27 13:05 | disposition home or self-care (01) ==
LOC: DIORS 13:05
PROVIDERS: PCP Nurse Practitioner; Referring Provider Nurse Practitioner; Visit Provider Student in an Organized Health Care Education/Training Program
DX: M25.511 Pain in right shoulder (principal)
CPT/HCPCS: 73030

== ENCOUNTER 2021-07-15 04:49 | Outpatient (CLI) | payer OTHER, SELFPAY ==
--- NOTE | 2021-07-15 08:30 | DI.MRI_ITS ---
Exam(s) MR CERVICAL SPINE WO EXAM: MR CERVICAL SPINE WO CLINICAL HISTORY: no improvement with meds, PT, referring to pain cl M54.12 RADICULOPATHY TECHNIQUE: Multiplanar multisequence MRI of the cervical spine was performed without intravenous con trast. COMPARISON: CR CERV SP.WITH OBL OR FLEX/EXT from 07/29/2014 CR CERV SP.WITH OBL OR FLEX/EXT from 07/29/2014 FINDINGS: BONES: Vertebral body heights are maintained. Intervertebral disc spaces are normal. Alignment is nor mal. Bone marrow signal intensity is within normal limits. CERVICAL CORD: Craniovertebral junction is unremarkable. The cervical cord is normal size and signal intensity. SOFT TISSUES: Unremarkable. C2-3: No disc herniation or bulge is identified. C3-4: Tiny disc osteophyte complex right lateral without significant neural foraminal surgical canal encroachment. C4-5: Tiny disc osteophyte complex left lateral without significant neural foraminal encroachment. C5-6: Moderate loss of disc height. Prominent plate osteophytes, eccentric toward the right, causing severe right neural foraminal narrowing. There is also mild effacement of the right anterior CSF sp miri. No significant left neural foraminal narrowing. C6-7: Moderate loss of disc height. Small endplate osteophytes and mild disc bulging eccentric towar d the left, causing moderate to severe neural foraminal narrowing. No significant right neural violet inal narrowing or central canal stenosis. C7-T1: No disc herniation or bulge is identified. IMPRESSION: Multi level endplate osteophytes and disc bulging. The the findings are most severe on the right ilda e at C5-6 where there is severe right neural foraminal narrowing. No focal disc herniation is seen a t any level. DATA REPOSITORY:
== END 2021-07-15 05:09 ==
PROVIDERS: PCP Nurse Practitioner; Visit Provider Nurse Practitioner
DX: M54.12 Radiculopathy, cervical region (principal); M25.78 Osteophyte, vertebrae; M50.222 Other cervical disc displacement at C5-C6 level; M48.02 Spinal stenosis, cervical region
CPT/HCPCS: 72141

== ENCOUNTER 2021-11-24 10:50 | Outpatient (CLI) | payer OTHER, SELFPAY ==
--- NOTE | 2021-11-24 06:00 | DI.RAD_ITS ---
Exam(s) XR PAIN CLINIC CERVICAL SP 2V EXAM: XR PAIN CLINIC CERVICAL SP 2V CLINICAL HISTORY: Dx: Cervical Radiculopathy TECHNIQUE: 2D and realtime digital imaging was performed. Radiologist not present. CONTRAST MATERIAL: None. COMPARISON: No exams were available for comparison FINDINGS: Fluoroscopy was provided for pain management therapy. Please refer to procedure report or details. Cumulative dose: Ka,r=3.90 mGy IMPRESSION: RADIATION DOSE DELIVERED:
[2021-11-24 11:03] VITALS: BP 129/71; PULSE 81; RESP 18; TEMP 36.9; O2SAT 100
--- NOTE | 2021-11-24 11:39 | PDOC.PAIN_ITS ---
Pain Clinic Procedure Note Procedure Note Procedure Note: Cervical Epidural Steroid Injection Mirela Chemo Parkinson has been referred to the Pain Management Center for cervical epidural steroid injection. COMMENTS: I evaluated the patient on 10/05/21. DX: Cervical radiculopathy Pre-procedure pain VAS = 8/10. Tesha was interviewed and the medical record reviewed. There were no medical, pharmacologic, radiographic or other structural contraindications to attempting fluoroscopically guided epidural steroid injection. Risks and expected side effects as well as potential benefit of the procedure were reviewed with Tesha , and [place] voiced concerns addressed. The printed consent form was signed and witnessed. Standard time-out procedure was performed. The patient was placed in the prone position on the fluoroscopy table and automated blood pressure cuff and pulse oximeter applied. The skin entry point for entering the epidural space by a midline C7-T1 interlaminar approach was identified under fluoroscopy and marked. Following thorough Chlorhexadine preparation of the skin and draping and 1% lidocaine infiltration of the skin entry point and subcutaneous tissues, an 18 gauge Tuohy needle was placed under fluoroscopic guidance and with loss of resistance technique into the C7-T1 epidural space. Upon needle placement and loss of resistance there were no paresthesiae or return of blood or CSF through the needle. 1 cc of Omnipaque 240 was injected with clear epidural spread in the A/P, lateral and oblique views. 15 mg of preservative free Dexomethasone was injected with no unusual discomfort expressed by Tesha. This was flushed with 1 cc of normal saline. Tesha 's vital signs were stable throughout the procedure and were as recorded in the docflowsheet by the nursing staff. Follow up plans and appointments were discussed with the Tesha. Post procedure instruction was given as documented in nursing documentation and having met discharge criteria, Tesha was discharged from the Pain Management Center. COMMENTS: Post-procedure pain VAS = 5/10. Olayinka Hsu DO, MPH [facility]-Pain Management [facility] for Pain Management CC: Rebekah Posey, PhD SPLUNK CONSULTANT
[2021-11-24] MEDS: Omnipaque 240 MG/ML 50 ML BTL IJ (11:48)
[2021-11-24] MEDS: Lidocaine 1% Pres-Free 5 ML VIAL IJ (11:48)
[2021-11-24] MEDS: Dexamethasone Sod. Phos./Pres-Free 10 MG/ML VIAL IJ (11:48)
[2021-11-24 11:49] VITALS: BP 129/67; PULSE 75; RESP 15; O2SAT 100
== END 2021-11-24 10:51 | disposition home or self-care (01) ==
LOC: PC 10:51
PROVIDERS: PCP Nurse Practitioner; Visit Provider Preventive Medicine Occupational Medicine
DX: M54.12 Radiculopathy, cervical region (principal)
CPT/HCPCS: 62321; 72040; Q9967

== ENCOUNTER 2022-01-02 03:08 | Outpatient (CLI) | payer OTHER, SELFPAY ==
[2022-01-02 08:44] LABS: Cholesterol 237 mg/dL (<200); HDL Cholesterol 43 mg/dL (40-60); Triglyceride 464 mg/dL (<150)
[2022-01-02 08:50] LABS: Hemoglobin A1C 4.9 % (<5.7)
[2022-01-02 08:58] LABS: LDL CHOLESTEROL 106 mg/dL (<100)
== END 2022-01-02 03:09 | disposition home or self-care (01) ==
LOC: LBO 03:09
PROVIDERS: PCP Nurse Practitioner; Visit Provider Nurse Practitioner
DX: Z13.1 Encounter for screening for diabetes mellitus (principal); Z13.6 Encounter for screening for cardiovascular disorders
CPT/HCPCS: 36415; 80061; 83721; 83036

== ENCOUNTER 2022-03-01 01:58 | Outpatient (CLI) | payer OTHER, SELFPAY ==
--- NOTE | 2022-03-01 07:15 | DI.MAMMO_ITS ---
Exam(s) MAMMO SCREENING EXAM: MAMMO SCREENING CLINICAL HISTORY: screening,Z12.39 TECHNIQUE: Mammograms were interpreted according to the usual protocol including computer analysis w [employer] CAD system, tomosynthesis and C-view imaging. COMPARISON: 2019 FINDINGS: The breasts are composed of heterogeneously dense fibroglandular densities, Breast Density category C . No suspicious masses or suspicious microcalcifications are seen. There is a stable circumscribed nod ule in the lower inner quadrant of the left breast. No skin thickening or abnormal axillary lymph nodes are seen. There has been no significant change from prior exams. IMPRESSION: BI-RADS Cat 2 - Benign Findings Yearly screening mammography is recommended. Breast Density Category C, heterogeneously Dense. The mammogram demonstrates the patient's breast tissue is dense. Dense breast tissue is very common a nd is not abnormal but dense breast tissue can make it harder to find cancer on a mammogram. Also, de nse breast tissue may increase breast cancer risk. This information about the result of the mammogram report was provided to the patient to raise their awareness. Use this report when you speak with the patient about their risks for breast cancer, which includes their family history. At that time, you may recommend additional screening tests (Ultrasound or MRI) as they might be useful based on their r isk. A negative radiographic report should not delay biopsy if a dominant or clinically suspicious mass is present. Up to ten percent of cancers are not identified on mammography. A negative report may reinforce clinical impression. Adenosis and dense breasts may obscure an underlying neoplasm. False positive reports average 6 to 10%.
== END 2022-03-01 02:18 ==
PROVIDERS: PCP Nurse Practitioner; Visit Provider Nurse Practitioner
DX: Z12.31 Encounter for screening mammogram for malignant neoplasm of breast (principal)
CPT/HCPCS: 77063; 77067

== ENCOUNTER 2022-06-19 09:51 | Outpatient (CLI) | payer OTHER, SELFPAY ==
[2022-06-19 15:01] LABS: TSH (W/Ref FT4) 1.93 uIU/mL (0.36-3.74)
[2022-06-19 22:50] LABS: FSH 19.1 mIU/mL (See Note)
== END 2022-06-19 09:52 | disposition home or self-care (01) ==
LOC: LBO 09:51
PROVIDERS: PCP Nurse Practitioner; Visit Provider Nurse Practitioner Family
DX: R53.83 Other fatigue (principal); N95.1 Menopausal and female climacteric states
CPT/HCPCS: 36415; 83001; 84443

== ENCOUNTER 2022-08-09 02:52 | Outpatient (CLI) | payer OTHER, SELFPAY ==
[2022-08-09 18:09] LABS: Estradiol 206 pg/mL (See Note)
[2022-08-09 18:38] LABS: FSH 4.5 mIU/mL (See Note)
[2022-08-09 18:44] LABS: Prolactin 6.5 ng/mL (See Note)
== END 2022-08-09 02:53 | disposition home or self-care (01) ==
LOC: LBO 02:52
PROVIDERS: PCP Nurse Practitioner; Visit Provider Obstetrics & Gynecology
DX: N91.2 Amenorrhea, unspecified
CPT/HCPCS: 36415; 82670; 83001; 84146

== ENCOUNTER 2022-08-21 16:38 | Outpatient (REF) | payer OTHER, SELFPAY ==
--- NOTE | 2022-08-21 15:10 | PAPFT_PTH ---
PATIENT: Mirela Parkinson LOC: [facility] U#:[id number] AGE/SX: 42/F ROOM: RE08/21/[address]: Joi Botello DO : 1980 BED: DIS: 08/21/2022 SPEC #: [id number] RECD: 08/21/22 17:26 STATUS: RADHA REQ #: [id number] KESHAV: 08/21/22 15:[address]: Joi Botello DEPT: [facility] Cytology RECD BY: Lynne Paredes ENTERED: 08/21/22 17:26 SP TYPE: PAPFT OTHR DR: Rebekah Posey, PhD REIMBURSEMENT ANALYST Tissues: 1 - CX/ENDOCX FOR PAP SMEARS Procedures: PAP THIN PREP/[facility] Screening HPV DNA PROBE Comments: [id number]
== END 2022-08-21 16:39 | disposition home or self-care (01) ==
LOC: LBN 16:38
PROVIDERS: PCP Nurse Practitioner; Visit Provider Obstetrics & Gynecology
DX: Z12.4 Encounter for screening for malignant neoplasm of cervix (principal); Z11.51 Encounter for screening for human papillomavirus (HPV)
CPT/HCPCS: 88142; 87624

== ENCOUNTER 2022-11-13 02:28 | Outpatient (CLI) | payer OTHER, SELFPAY ==
--- NOTE | 2022-11-13 15:20 | DI.MRI_ITS ---
Exam(s) MR CERVICAL SPINE WO EXAM: MR CERVICAL SPINE WO CLINICAL HISTORY: CERVICAL DISC DISORDER W/RADICULOPATHY M50.120 NECK PAIN TECHNIQUE: Multiplanar multisequence MRI of the cervical spine was performed without intravenous con trast. COMPARISON: MR MR CERVICAL SPINE WO from 07/15/2021 FINDINGS: BONES: Vertebral body heights are maintained. Alignment is normal. Bone marrow signal intensity is wi thin normal limits. CERVICAL CORD: Craniovertebral junction is unremarkable. The cervical cord is normal size and signal intensity. SOFT TISSUES: Unremarkable. C2-3: No disc herniation or bulge is identified. No evidence of neural foraminal narrowing. No signi ficant central canal stenosis C3-4: Small disc osteophytes. Mild neural foraminal narrowing. No significant central canal stenosis C4-5: Small disc osteophytes. Mildneural foraminal narrowing. No significant central canal stenosis C5-6: Stable appearance of moderate loss of disc height, endplate osteophytes and prominent disc bulg ing, causing severe right neural foraminal narrowing. Fkew-zl-acpmauzv left neural foraminal narrowin g. There is stable mild effacement of the anterior CSF space. C6-7: Stable moderate loss of disc height and broad-based disc osteophytes, again causing moderate to severe neural foraminal narrowing on the left and mild on the right.C7-T1: No disc herniation or bul ge is identified. No evidence of neural foraminal narrowing. No significant central canal stenosis IMPRESSION: Multilevel degenerative disc changes, greatest at C5-6 and C6-7. There is significant neural foramina l narrowing at these levels. Findings are a roughly stable from prior exam.. DATA REPOSITORY:
== END 2022-11-13 02:48 ==
LOC: DI 02:29
PROVIDERS: PCP Nurse Practitioner Family; Visit Provider Orthopaedic Surgery
DX: M47.812 Spondylosis without myelopathy or radiculopathy, cervical region (principal)
CPT/HCPCS: 72141

== ENCOUNTER 2023-01-02 02:18 | Outpatient (CLI) | payer OTHER, SELFPAY ==
[2023-01-02 07:23] LABS: Abs Immature Grans 0.01 10^3/uL (0.0-0.06); Absolute Basophil Count 0.04 10^3/uL (0.0-0.2); Absolute Eosinophil Count 0.05 10^3/uL (0.0-0.7); Absolute Lymphocyte Count 1.25 10^3/uL (1.2-3.4); Absolute Monocyte Count 0.31 10^3/uL (0.1-0.8); Absolute Neutrophil Count 4.97 10^3/uL (1.2-6.7); Basophils % 0.6; Eosinophils % 0.8; HCT 40.9 % (36.0-46.0); HGB 13.6 g/dL (11.2-15.7); Immature Grans % 0.2; Lymphocytes % 18.9; MCH 31.3 pg (27.0-33.0); MCHC 33.3 % (32.0-36.0); MCV 94 fL (80-95); MPV 9.4 fL (8.0-11.0); Monocytes % 4.7; Neutrophils % 74.8; Platelet Count 231 10^3/uL (130-400); RBC 4.34 10^6/uL (3.93-5.22); RDW 12.7 % (11.7-14.6); RDW-SD 44.4 fL; WBC 6.63 10^3/uL (4.4-10.8)
[2023-01-02 08:06] LABS: ALT 16 U/L (14-59); AST 13 U/L (15-37); Albumin 3.9 g/dL (3.4-5.0); Alkaline Phosphatase 70 U/L (46-116); Anion Gap 9.7 mmol/L (3-11); BUN 10 mg/dL (7-18); Bilirubin, Total 0.6 mg/dL (0.2-1.0); CO2 25.3 mmol/L (21.0-32.0); Calcium 8.9 mg/dL (8.5-10.1); Calculated LDL 98 mg/dL (<100); Chloride 103 mmol/L (98-107); Cholesterol 198 mg/dL (<200); Estimated GFR 71.69 (mL/min/1.73m2); Glucose 111 mg/dL (74-106); HDL Cholesterol 46 mg/dL (40-60); Sodium 138 mmol/L (136-145); Total Protein 7.3 g/dL (6.4-8.2); Triglyceride 271 mg/dL (<150)
[2023-01-02 08:11] LABS: INR 0.9 (0.9-1.1); Prothrombin Time 9.5 sec (9.3-11.0)
== END 2023-01-02 02:19 | disposition home or self-care (01) ==
LOC: LBO 02:18
PROVIDERS: PCP Nurse Practitioner Family; Visit Provider Nurse Practitioner Family
DX: Z01.812 Encounter for preprocedural laboratory examination (principal); E78.1 Pure hyperglyceridemia; K58.0 Irritable bowel syndrome with diarrhea; M54.12 Radiculopathy, cervical region; N95.1 Menopausal and female climacteric states; Z00.00 Encounter for general adult medical examination without abnormal findings; Z72.0 Tobacco use
CPT/HCPCS: 36415; 80053; 80061; 85025; 85610

== ENCOUNTER 2023-03-05 02:09 | Outpatient (CLI) | payer OTHER, SELFPAY ==
--- NOTE | 2023-03-05 07:15 | DI.MAMMO_ITS ---
Exam(s) MAMMO SCREENING EXAM: MAMMO SCREENING CLINICAL HISTORY: screening,z12.39 TECHNIQUE: Bilateral full field digital CC and MLO mammographic images were obtained with 3D tomosyn thesis and utilizing computer aided detection (CAD). COMPARISON: Available for comparison. FINDINGS: Masses/Architectural Distortion: There are stable bilateral breast nodules. No suspicious nodules or areas of architectural distortion are present. Microcalcifications: No suspicious pleomorphic-type are seen. Skin Thickening/Nipple Retraction: None. IMPRESSION: 1. No significant interval change with no specific features of malignancy noted. 2. Unless there is more urgent need, screening mammography is recommended, as per [employer] guidelines. BI-RADS Category 2 - Benign Findings Breast Density - Category C - Heterogeneously dense Breast density category C or D implies that the patient has dense breast tissue. Dense breast tissue is very common and is not abnormal but dense breast tissue can make it harder to find cancer on a ma mmogram. Also, dense breast tissue may increase their breast cancer risk. This information about the result of the mammogram report was provided to the patient to raise their awareness. Use this report when you speak with the patient about their risks for breast cancer, which includes their family hist ory. At that time, you may recommend for more screening tests (Ultrasound or MRI) as they might be us eful based on their risk. A negative radiographic report should not delay biopsy if a dominant or clinically suspicious mass is present. Up to ten percent of cancers are not identified on mammography. A negative report may reinforce clinical impression. Adenosis and dense breasts may obscure an underlying neoplasm. False positive reports average 6 to 10%. Patient will receive a letter notifying them of these results.
== END 2023-03-05 02:29 ==
LOC: DI 02:09
PROVIDERS: PCP Nurse Practitioner Family; Visit Provider Obstetrics & Gynecology
DX: Z12.39 Encounter for other screening for malignant neoplasm of breast (principal)
CPT/HCPCS: 77063; 77067

== ENCOUNTER 2023-03-21 03:13 | Outpatient (CLI) | payer OTHER, SELFPAY ==
[2023-03-21 13:53] LABS: ALT 22 U/L (14-59); AST 16 U/L (15-37); Albumin 4.2 g/dL (3.4-5.0); Alkaline Phosphatase 71 U/L (46-116); Anion Gap 9.8 mmol/L (3-11); BUN 14 mg/dL (7-18); Bilirubin, Total 0.3 mg/dL (0.2-1.0); CO2 27.2 mmol/L (21.0-32.0); CREATININE 1.2 mg/dL (0.55-1.02); Calcium 9.4 mg/dL (8.5-10.1); Chloride 101 mmol/L (98-107); Glucose 98 mg/dL (74-106); Sodium 138 mmol/L (136-145); TSH (W/Ref FT4) 1.52 uIU/mL (0.36-3.74); Total Protein 7.5 g/dL (6.4-8.2)
[2023-03-22 10:10] LABS: Lyme Ab w Rflx to Lyme Confirm Negative (Negative)
[2023-03-22 14:25] LABS: ANA Interpretation Positive (Negative); ANA Titer Pattern 1:80 Speckled
[2023-03-23 15:12] LABS: dsDNA Ab, IgG <12.3 IU/mL (<30.0)
[2023-03-24 17:26] LABS: Anaplasma phagocytophilum Negative (Negative); B. miyamotoi PCR Negative (Negative); Babesia divergens/MO-1 Negative (Negative); Babesia duncani Negative (Negative); Babesia microti Negative (Negative); Ehrlichia chaffeensis Negative (Negative); Ehrlichia ewingii/canis Negative (Negative); Ehrlichia muris eauclairensis Negative (Negative)
== END 2023-03-21 03:14 | disposition home or self-care (01) ==
LOC: LBO 03:13
PROVIDERS: PCP Nurse Practitioner Family; Visit Provider Nurse Practitioner Family
DX: R53.83 Other fatigue (principal); M25.59 Pain in other specified joint; N91.2 Amenorrhea, unspecified; W57.XXXA Bitten or stung by nonvenomous insect and other nonvenomous arthropods, initial encounter; T14.8XXA Other injury of unspecified body region, initial encounter
CPT/HCPCS: 36415; 80053; 87798; 84443; 86038; 86225; 86618

== ENCOUNTER 2023-05-31 04:15 | Outpatient (CLI) | payer OTHER, SELFPAY ==
[2023-05-31 07:41] LABS: Abs Immature Grans 0.01 10^3/uL (0.0-0.06); Absolute Basophil Count 0.04 10^3/uL (0.0-0.2); Absolute Eosinophil Count 0.05 10^3/uL (0.0-0.7); Absolute Lymphocyte Count 1.45 10^3/uL (1.2-3.4); Absolute Monocyte Count 0.29 10^3/uL (0.1-0.8); Absolute Neutrophil Count 3.29 10^3/uL (1.2-6.7); Basophils % 0.8; HCT 41.8 % (36.0-46.0); HGB 13.9 g/dL (11.2-15.7); Immature Grans % 0.2; Lymphocytes % 28.3; MCH 31.4 pg (27.0-33.0); MCHC 33.3 % (32.0-36.0); MCV 94 fL (80-95); MPV 9.2 fL (8.0-11.0); Monocytes % 5.7; Platelet Count 216 10^3/uL (130-400); RBC 4.43 10^6/uL (3.93-5.22); RDW 13.1 % (11.7-14.6); RDW-SD 45.1 fL; WBC 5.13 10^3/uL (4.4-10.8)
[2023-05-31 08:20] LABS: ALT 18 U/L (14-59); AST 17 U/L (15-37); Alkaline Phosphatase 76 U/L (46-116); Anion Gap 6.6 mmol/L (3-11); BUN 11 mg/dL (7-18); Bilirubin, Total 0.6 mg/dL (0.2-1.0); CO2 28.4 mmol/L (21.0-32.0); Chloride 102 mmol/L (98-107); Estimated GFR 71.24 (mL/min/1.73m2); Glucose 100 mg/dL (74-106); Potassium 4.3 mmol/L (3.5-5.1); Sodium 137 mmol/L (136-145); Total Protein 7.6 g/dL (6.4-8.2)
[2023-06-04 12:35] LABS: IgA 182 mg/dL (85-499); Interpretation (See Note); Tissue Transglutaminase IgA <1.2 U/mL (<4.0)
== END 2023-05-31 04:16 | disposition home or self-care (01) ==
LOC: LBO 04:15
PROVIDERS: PCP Nurse Practitioner; Visit Provider Nurse Practitioner Adult Health
DX: N91.2 Amenorrhea, unspecified (principal); R53.82 Chronic fatigue, unspecified
CPT/HCPCS: 36415; 80053; 82784; 83516; 85025

== ENCOUNTER 2023-06-04 09:27 | Outpatient (REF) | payer OTHER, SELFPAY ==
[2023-06-06 12:35] LABS: Helicobacter pylori Ag, Feces Negative (Negative)
[2023-06-07 17:19] LABS: Calprotectin <50.0 mcg/g
== END 2023-06-04 09:28 | disposition home or self-care (01) ==
LOC: LBN 09:27
PROVIDERS: PCP Nurse Practitioner; Visit Provider Nurse Practitioner Adult Health
DX: R19.00 Intra-abdominal and pelvic swelling, mass and lump, unspecified site (principal); R19.8 Other specified symptoms and signs involving the digestive system and abdomen; R12 Heartburn; K58.9 Irritable bowel syndrome, unspecified
CPT/HCPCS: 87338; 83993

== ENCOUNTER 2024-07-29 01:16 | Outpatient (CLI) | payer OTHER, SELFPAY ==
--- NOTE | 2024-07-29 06:15 | DI.MAMMO_ITS ---
Exam(s) MAMMO SCREENING EXAM: MAMMO SCREENING CLINICAL HISTORY: screening,z12.39 TECHNIQUE: Bilateral full field digital CC and MLO mammographic images were obtained with 3D tomosyn thesis and utilizing computer aided detection (CAD). COMPARISON: Available for comparison. FINDINGS: Masses/Architectural Distortion: No suspicious nodules or areas of architectural distortion are seen. There are nodule seen in both breasts. There has been interval decrease in size of the nodule seen in the posterior aspect of the left breast on the MLO view. Microcalcifications: No suspicious pleomorphic-type are seen. Skin Thickening/Nipple Retraction: None. IMPRESSION: 1. No significant interval change with no specific features of malignancy noted. 2. Unless there is more urgent need, screening mammography is recommended, as per [employer] guidelines. BI-RADS Category 2 - Benign Findings Breast Density - Category C - Heterogeneously dense Breast density category C or D implies that the patient has dense breast tissue. Dense breast tissue is very common and is not abnormal but dense breast tissue can make it harder to find cancer on a ma mmogram. Also, dense breast tissue may increase their breast cancer risk. This information about the result of the mammogram report was provided to the patient to raise their awareness. Use this report when you speak with the patient about their risks for breast cancer, which includes their family hist ory. At that time, you may recommend for more screening tests (Ultrasound or MRI) as they might be us eful based on their risk. A negative radiographic report should not delay biopsy if a dominant or clinically suspicious mass is present. Up to ten percent of cancers are not identified on mammography. A negative report may reinforce clinical impression. Adenosis and dense breasts may obscure an underlying neoplasm. False positive reports average 6 to 10%. Patient will receive a letter notifying them of these results.
== END 2024-07-29 01:36 ==
PROVIDERS: PCP Nurse Practitioner; Visit Provider Nurse Practitioner
DX: Z12.31 Encounter for screening mammogram for malignant neoplasm of breast (principal)
CPT/HCPCS: 77063; 77067

== ENCOUNTER 2024-10-17 01:14 | Outpatient (CLI) | payer OTHER, SELFPAY ==
[2024-10-17 08:49] LABS: ALT 20 U/L (14-59); AST 18 U/L (15-37); Albumin 4.5 g/dL (3.4-5.0); Alkaline Phosphatase 83 U/L (46-116); Anion Gap 14.4 mmol/L (3-11); BUN 10 mg/dL (7-18); Bilirubin, Total 0.88 mg/dL (0.2-1.0); CO2 22.6 mmol/L (21.0-32.0); CREATININE 1.3 mg/dL (0.55-1.02); Calcium 9.3 mg/dL (8.5-10.1); Calculated LDL 105 mg/dL (<100); Chloride 102 mmol/L (98-107); Cholesterol 224 mg/dL (<200); Estimated GFR 51.68 (mL/min/1.73m2); Glucose 98 mg/dL (74-106); HDL Cholesterol 44 mg/dL (40-60); Potassium 4.4 mmol/L (3.5-5.1); Sodium 139 mmol/L (136-145); TSH (W/Ref FT4) 0.91 uIU/mL (0.36-3.74); Triglyceride 375 mg/dL (<150)
== END 2024-10-17 01:15 | disposition home or self-care (01) ==
LOC: LBO 01:14
PROVIDERS: PCP Nurse Practitioner; Visit Provider Nurse Practitioner
DX: E78.1 Pure hyperglyceridemia (principal); K58.0 Irritable bowel syndrome with diarrhea; K21.9 Gastro-esophageal reflux disease without esophagitis; E66.9 Obesity, unspecified
CPT/HCPCS: 36415; 80053; 80061; 84443

== ENCOUNTER 2024-12-01 03:17 | Outpatient (CLI) | payer OTHER, SELFPAY ==
[2024-12-01 10:06] LABS: Anion Gap 7.2 mmol/L (3-11); BUN 7 mg/dL (7-18); CO2 27.8 mmol/L (21.0-32.0); Calcium 9.6 mg/dL (8.5-10.1); Chloride 105 mmol/L (98-107); Glucose 87 mg/dL (74-106); Sodium 140 mmol/L (136-145)
== END 2024-12-01 03:18 | disposition home or self-care (01) ==
LOC: LBO 03:17
PROVIDERS: PCP Nurse Practitioner; Visit Provider Nurse Practitioner
DX: R79.9 Abnormal finding of blood chemistry, unspecified (principal)
CPT/HCPCS: 36415; 80048

== ENCOUNTER 2024-12-29 08:56 | Day surgery (SDC) | payer OTHER, SELFPAY ==
[2024-12-29 09:15] VITALS: BP 109/71; PULSE 85; RESP 16; TEMP 36; O2SAT 100
[2024-12-29] MEDS: Lactated Ringers 1,000 ML 80 ML IV (09:45)
--- NOTE | 2024-12-29 10:35 | W.ANESPRE ---
General Info Date of Service Date Performed: 12/29/24 Height: 5 ft 7 in Weight: 81.4 kg Body Mass Index (BMI): 28.0 Surgical Procedure: Operation Date: 12/29/24 10:35 Proposed Procedure Side Surgeon p Colonoscopy Easton Becker MD Actual Procedure Side Surgeon p Colonoscopy Not Applicable Easton Becker MD Pre-Op Diagnosis Post-Op Diagnosis screening colonoscopy Meds Allergies and Home Medications Allergies Allergy/AdvReac Type Severity Reaction Status Date / Time No Known Allergies Allergy Verified 12/29/24 09:20 Home Medication ?Medication ?Instructions ?Recorded upeutvbjsuyw-[id number]-minerals 27 1 tab-cap PO DAILY 02/26/13 mg-0.4 mg tablet (Women's One Daily) clotrimazole-betamethasone 1 1 applic topical BID 2 weeks #45 11/21/23 %-0.05 % topical cream grams cyclobenzaprine 5 mg tablet 5 mg PO TID PRN muscle spasm #60 07/21/24 tabs sertraline 50 mg tablet 75 mg (1.5 x 50 mg) PO DAILY 07/21/24 Depression #135 tabs psyllium seed (sugar) oral powder 1 tbsp PO DAILY PRN 10/13/24 (Metamucil (sugar) oral powder) tirzepatide (weight loss) 10 10 mg (0.5 mL) subcut QWEEK #2 mL 10/13/24 mg/0.5 mL subcutaneous pen injector Current Visit Medications: Current Medications Generic Name Dose Route Start Last Admin Trade Name Freq PRN Reason Stop Dose Admin Ringer's Solution 1,000 mls @ 80 mls/hr 12/29/24 06:00 IV 12/29/24 23:59 INFUSION NGHIA IV Miscellaneous Supplies 1 each 12/29/24 06:00 Iv Access IV 12/29/24 23:59 DIRECTED NGHIA Sodium Chloride 0 ml 12/29/24 06:00 Normal Saline Flush 10 Ml Syr IV 12/29/24 23:59 PRN PRN Sodium Chloride 0 ml 12/29/24 06:00 Normal Saline 10 Ml Vial IJ 12/29/24 23:59 DIRECTED PRN Sterile Water 0 ml 12/29/24 06:00 Water,Injection,Sterile 10 Ml Vial IJ 12/29/24 23:59 DIRECTED PRN PFSH Active Problems Active Problems: Problem Status Onset Code Cellulitis Acute L03.90 Vulvitis Acute N76.2 Urinary incontinence Acute R32 GERD (gastroesophageal reflux disease) Chronic ~09/2023 K21.9 Erosive esophagitis Acute ~08/22/23 K22.10 Hiatal hernia Chronic ~08/22/23 K44.9 Erosive gastropathy Acute ~08/22/23 K31.89 Joint pain Acute M25.50 Fatigue Acute R53.83 Tick bite Acute W57.XXXA Abdominal pain, right upper quadrant Acute R10.11 Well woman exam with routine gynecological exam Acute Z01.419 Amenorrhea Acute N91.2 Perimenopause Acute N95.1 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 Epigastric pain with RUQ pain; 06/12/23 [facility] GI, EGD planned Tendonitis of long head of biceps brachii of right shoulder Rotator cuff syndrome of right shoulder Paresthesias in left hand (06/19/18) 05/2018 s/p eval by neurology. Pt to be eval by Ortho. Treated with ulnar nerve decompression and transposition - s/p 08/13/18 Abnormal uterine bleeding (AUB) Secondary to Nexplanon device. Normal endometrial biopsy. Bleeding resolved after Nexplanon removed. Cubital tunnel syndrome on left s/p ulnar nerve decompression transposition - 08/13/18 Surgical History Surgical History History of esophagogastroduodenoscopy (EGD) (08/22/23[facility] Status post decompression of ulnar nerve at elbow Date of surgery 08/13/[address] Navarro History of dilation and curettage History of right salpingo-oophorectomy Endometrial Biopsy (05/16/18) For evaluation of abnormal uterine bleeding with Nexplanon in place. Tobacco Smoking/Tobacco Use Status: Former Tobacco Use Passive smoking exposure: No Second hand exposure: No Alcohol Alcohol Intake: current Alcohol intake frequency: holidays/special occasions only Alcohol type: beer Details: monthly or less, 1-2 t a time Substance Use Substance use: Rarely Substance use type: marijuana Prental History History 3 Para Hx # Term Pregnancies 2 Multiple births Hx # Pregnancies Ectopic pregnancies AB induced Hx Number of Living Children AB spontaneous Vital Signs and Lab Results Vital Signs Most Recent Vital Signs in EMR: Most Recent Vital Signs Temp Pulse Resp BP Pulse Ox 36 C L 85 16 109/71 100 12/29/24 09:15 12/29/24 09:15 12/29/24 09:15 12/29/24 09:15 12/29/24 09:15 Point of Care Results Point of Care Results: POC- Test(urine) Negative 12/29/24 09:25 Lab Results Blood Type / Crossmatch: No Data to Display Complete Blood Count: No Data to Display Complete Metabolic Panel: Sodium 140 mmol/L (136-145) 12/01/24 09:47 Potassium 4.0 mmol/L (3.5-5.1) 12/01/24 09:47 Chloride 105 mmol/L (98-107) 12/01/24 09:47 Carbon Dioxide 27.8 mmol/L (21.0-32.0) 12/01/24 09:47 BUN 7 mg/dL (7-18) 12/01/24 09:47 Creatinine 1.0 mg/dL (0.55-1.02) 12/01/24 09:47 Est GFR (CKD-EPI 2020) 70.80 (mL/min/1.73m2) 12/01/24 09:47 Calcium 9.6 mg/dL (8.5-10.1) 12/01/24 09:47 Glucose 87 mg/dL (74-106) 12/01/24 09:47 Liver Function Panel: No Data to Display Coagulation Panel: No Data to Display Cardiac Panel: No Data to Display Arterial Blood Gas: No Data to Display Venous Blood Gas: No Data to Display Pancreas Panel: No Data to Display Thyroid Panel: No Data to Display Infectious Disease: No Data to Display Blood Cultures: No Data to Display Toxicology Panel: No Data to Display Panel: No Data to Display Anesthesia Assessment and Plan Anesthesia History Personal History: No History of Anesthesia Complications Family History: No Family History of Anesthesia Complications Exercise Tolerance Exercise Tolerance: Metabolic Equivalents>4 Pertinent Negatives Pertinent Negatives: No Symptoms of GERD Cardiac & Pulmonary Exam Cardiac Exam: Normal S1/S2 Heart Sounds Pulmonary Exam: Clear Bilateral Breath Sounds Implantable Cardiac Device Does patient have a Pacemaker or an ICD?: No Airway Exam Known Difficult Airway: No Mallampati Class: 2 Mouth Opening: Normal (> 3cm) Thyromental Distance: Greater than 3 cm Neck Range of Motion: Full ROM Neck Circumference: Normal Teeth Condition: Normal Dentition ASA Classification ASA Score: ASA 2 Emergency Case?: No NPO Status NPO Status: NPO Clears >2 hours, Solids >8 hours Status Status: Negative HCG Anesthesia Plan Resuscitation Status: Full Code Anesthesia Technique: General Anesthesia Airway Planned: Natural Airway Monitors Used: Standard Monitors
[2024-12-29 10:37] VITALS: BMI 28.0
[2024-12-29 11:01] VITALS: BP 101/39; PULSE 73; RESP 18; TEMP 36.6; O2SAT 100
--- NOTE | 2024-12-29 11:05 | W.COLOREPORT ---
Date of service: 12/29/24 Time of Service: 11:05 Colonoscopy Report Procedure Description: PROCEDURES PERFORMED: 1. Colonoscopy PREOPERATIVE DIAGNOSIS: Screening colonoscopy POSTOPERATIVE DIAGNOSIS: Minimal/mild diverticulosis, grade 1 internal hemorrhoids SURGEON: Surja Becker MD INDICATION for procedure: 44-year-old woman who has no symptoms is due for her for screening colonoscopy. No family history of colon cancer. FINDINGS: Normal terminal ileum. No colon polyps anywhere. A few small/mild scattered diverticuli in the sigmoid colon. No rectal polyps. Minimal grade 1 internal hemorrhoids. SURVEILLANCE interval/FOLLOW-UP: 10 years SPECIMENS: None EBL: Minimal COMPLICATIONS: None QUALITY of prep: Excellent Procedure in detail: The patient gave written consent and was in agreement with the indications, the potential risks as well as the benefits of the procedure. They were taken to the endoscopy suite and laid in the left lateral decubitus position. A timeout was performed and anesthesia was administered which was tolerated well. I started the procedure. Digital rectal and visual examination was performed and grossly within normal limits. A well-lubricated flexible colonoscope was then introduced and passed without any notable difficulty all the way to the cecum identified by the ileocecal valve and the appendiceal orifice. The terminal ileum was intubated and looked normal. The scope was then slowly withdrawn with the above-noted findings. The patient tolerated the procedure well and was taken to the PACU in hemodynamically stable condition.
--- NOTE | 2024-12-29 11:11 | W.ANESPOSTOP ---
Postoperative Evaluation Date, Time and Location Date Performed: 12/29/24 Time Performed: 11:11 Patient Location: Day Surgery Unit Vital Signs Most Recent Imported Vital Signs: Most Recent Vital Signs Temp Pulse Resp BP Pulse Ox 36.6 C 73 18 101/39 L 100 12/29/24 11:01 12/29/24 11:01 12/29/24 11:01 12/29/24 11:01 12/29/24 11:01 Assessment Mental Status: Awake (Alert & Oriented to Patient Baseline) Airway and Respiratory Function: Patent airway with normal (patient baseline) respiratory exam Cardiovascular Function: Hemodynamically Stable Hydration Status: Adequately Hydrated Nausea & Vomiting: No Nausea or Vomiting Pain: Pt. Denies Any Pain Peripheral Nerve Block: Patient did not receive a nerve block
[2024-12-29 11:17] VITALS: BP 109/59; PULSE 62; RESP 20; TEMP 36.5; O2SAT 100
--- NOTE | 2024-12-29 11:19 | W.PM.DSUDISC ---
Date of service: 12/29/24 Discharge Plan Disposition Patient Disposition: Home Condition: Good Discharge Details Attending Provider: Easton Becker Primary Care Provider: Susanna Coates Home Meds and New Rx's Prescriptions: No Action clotrimazole-betamethasone 1-0.05 % cream 1 applic topical BID 14 Days Qty: 45 1RF Rx Instructions: apply to vulva twice daily sertraline 50 mg tablet 75 mg PO DAILY Qty: 135 3RF cyclobenzaprine 5 mg tablet 5 mg PO TID PRN (Reason: muscle spasm) Qty: 60 1RF Rx Instructions: Take 1 tablet by mouth three times a day as needed for neck pain Metamucil (sugar) Powder 1 tbsp PO DAILY PRN tirzepatide (weight loss) 10 mg/0.5 mL pen injector 10 mg subcut QWEEK Qty: 2 6RF Women's One Daily 1 EACH tablet 1 tab-cap PO DAILY Discharge Instructions Additional Instructions: FINDINGS: No colon polyps. Nothing to be concerned about anywhere. Overall everything looks pretty healthy. Some mild diverticular disease was seen in your colon today. This is extremely common, benign, related to Western diet and nothing needs to be done about it. Activity:: Activity as Tolerated Diet:: As Tolerated
== END 2024-12-29 11:43 | disposition home or self-care (01) ==
PROVIDERS: PCP Nurse Practitioner; Visit Provider Student in an Organized Health Care Education/Training Program
PROC: 0DJD8ZZ Inspection of Lower Intestinal Tract, Via Natural or Artificial Opening Endoscopic (ICD-10-PCS; CPT 45378; principal; 2024-12-29 10:30)
DX: Z12.11 Encounter for screening for malignant neoplasm of colon (principal); K57.30 Diverticulosis of large intestine without perforation or abscess without bleeding; K64.0 First degree hemorrhoids
CPT/HCPCS: 45378; 81025; J2003; J2704

== ENCOUNTER 2025-05-27 02:36 | Outpatient (CLI) | payer OTHER, SELFPAY ==
[2025-05-27 08:46] LABS: Abs Immature Grans 0.01 10^3/uL (0.0-0.06); HCT 40.5 % (36.0-46.0); HGB 13.9 g/dL (11.2-15.7); Immature Grans % 0.2 %; MCH 32.6 pg (27.0-33.0); MCHC 34.3 % (32.0-36.0); MCV 95 fL (80-95); MPV 9.3 fL (8.0-11.0); Platelet Count 249 10^3/uL (130-400); RBC 4.26 10^6/uL (3.93-5.22); RDW 12.4 % (11.7-14.6); RDW-SD 43.2 fL; WBC 5.25 10^3/uL (4.4-10.8)
[2025-05-27 09:30] LABS: Glucose Negative (Negative)
[2025-05-27 09:50] LABS: Hemoglobin A1C < 4.5 % (<5.7)
[2025-05-27 09:59] LABS: Anion Gap 9.8 mmol/L (3-11); BUN 12 mg/dL (7-18); CO2 27.2 mmol/L (21.0-32.0); Calcium 9.3 mg/dL (8.5-10.1); Calculated LDL 86 mg/dL (<100); Chloride 103 mmol/L (98-107); Cholesterol 153 mg/dL (<200); Estimated GFR 79.85 (mL/min/1.73m2); Glucose 84 mg/dL (74-106); HDL Cholesterol 38 mg/dL (>or=50); Potassium 4.1 mmol/L (3.5-5.1); Sodium 140 mmol/L (136-145); TSH 0.83 uIU/mL (0.36-3.74); Triglyceride 146 mg/dL (<150)
== END 2025-05-27 02:37 | disposition home or self-care (01) ==
LOC: LBO 02:36
PROVIDERS: PCP Nurse Practitioner; Visit Provider Family Medicine
DX: E87.8 Other disorders of electrolyte and fluid balance, not elsewhere classified (principal); R00.2 Palpitations
CPT/HCPCS: 36415; 80048; 80061; 81003; 83036; 84443; 85025

== ENCOUNTER 2025-06-04 22:38 | Emergency (ER) | payer OTHER, SELFPAY ==
[2025-06-04 22:42] VITALS: BP 172/76; PULSE 85; RESP 16; TEMP 35.8; O2SAT 100
[2025-06-04] MEDS: Lidocaine/Epinephri/Tetracaine Topical Gel 3 ML (22:53)
--- NOTE | 2025-06-04 22:59 | ED.GENADUL_ITS ---
Discharge Plan Disposition Patient Disposition: Home Condition: Good Discharge Details Clinical Impression: Laceration of left orbit, Hematoma of right elbow Primary Care Provider: Susanna Coates ED Provider: Darin Barrios Home Meds and New Rx's Prescriptions: No Action clotrimazole-betamethasone 1-0.05 % cream 1 applic topical BID 14 Days Qty: 45 1RF Rx Instructions: apply to vulva twice daily sertraline 50 mg tablet 75 mg PO DAILY Qty: 135 3RF cyclobenzaprine 5 mg tablet 5 mg PO TID PRN (Reason: muscle spasm) Qty: 60 1RF Rx Instructions: Take 1 tablet by mouth three times a day as needed for neck pain Metamucil (sugar) Powder 1 tbsp PO DAILY PRN atorvastatin 20 mg tablet 20 mg PO QPM Qty: 90 3RF Women's One Daily 1 EACH tablet 1 tab-cap PO DAILY tirzepatide 12.5 mg/0.5 mL pen injector 12.5 mg subcut QWEEK Qty: 2 5RF Rx Instructions: PLEASE FILL FOR ZEPBOUND.Patient is not Diabetic Discharge Instructions Instructions: Laceration Repair With Stitches ED Additional Instructions: Please keep the area clean and dry. Monitor closely for any redness, drainage or discharge. For nonabsorbable sutures, please return in 7 to 10 days to have the wound reassessed and the sutures removed. If you come back to the emergency department here it will be free of charge for the suture removal. For long-term scar cosmesis, please make sure to avoid any sun to the area for the next year. Apply moisturizer or vitamin E to the area twice daily for the next 12 months for the best chance of wound/scar medication. Please take a daily multivitamin as well as this can help in wound healing. If you notice any worsening of your symptoms, or any new symptoms such as vomiting, diarrhea, fever, chills, shortness of breath, chest pain, numbness, weakness, or fainting , please return immediately to the emergency department for reevaluation. Please follow up with your primary care provider as soon as possible for reassessment and reevaluation. As always, it was a pleasure participating in your medical care today. Referrals: Susanna Coates NP [Primary Care Provider, Medicine] [facility] General Date/Time Provider Initiated Documentation: 06/04/25 22:47 . HPI Narrative: This is a pleasant 45-year-old female who presents today for laceration of her left brow. She was at work when she slipped and fell and hit her brow on the bar at work. She developed immediate laceration to the left brow with bleeding. No loss of consciousness. She also hit and bruised her right elbow. She denies any numbness or tingling. No fever or chills. No vision changes. Tetanus is updated in 2014. No other complaints at this time. No headache or neck pain. No chest pain. No vomiting or diarrhea. She is not on any blood thinners. Related Data Home Medications ?Medication ?Instructions ?Recorded ?Confirmed [id number] 27 1 tab-cap PO DAILY 06/04/25 mg-0.4 mg tablet (Women's One Daily) clotrimazole-betamethasone 1 1 applic topical BID 2 we eks #45 11/21/23 06/04/25 %-0.05 % topical cream grams cyclobenzaprine 5 mg tablet 5 mg PO TID PRN muscle spa sm #60 07/21/24 06/04/25 tabs sertraline 50 mg tablet 75 mg (1.5 x 50 mg) PO DAILY 07/21/24 06/04/25 Depression #135 tabs psyllium seed (sugar) oral powder 1 tbsp PO DAILY PRN 10/13/24 06/04/25 (Metamucil (sugar) oral powder) atorvastatin 20 mg tablet 20 mg PO QPM #90 tabs 06/04/25 tirzepatide 12.5 mg/0.5 mL 12.5 mg (0.5 mL) subcut QWE EK #2 mL 03/24/25 06/04/25 subcutaneous pen injector Previous Rx's ?Medication ?Instructions ?Recorded clotrimazole-betamethasone 1 1 applic topical BID 2 we eks #45 11/21/23 %-0.05 % topical cream grams cyclobenzaprine 5 mg tablet 5 mg PO TID PRN muscle spa sm #60 07/21/24 tabs sertraline 50 mg tablet 75 mg (1.5 x 50 mg) PO DAILY 07/21/24 Depression #135 tabs atorvastatin 20 mg tablet 20 mg PO QPM #90 tabs tirzepatide 12.5 mg/0.5 mL 12.5 mg (0.5 mL) subcut QWE EK #2 mL 03/24/25 subcutaneous pen injector Allergies Allergy/AdvReac Type Severity Reaction Status Date / Time No Known Allergies Allergy Verified 06/04/25 22:44 General Stated Complaint: Laceration MINH: 4 Exam Narrative Exam Narrative: 1.Const: Well-nourished, Well-developed, appearing stated age 2.Eyes: PERRL, no conjunctival injection, and symmetrical lids. 3.ENT: Atraumatic external nose and ears. Moist MM. Neck: Symmetric, trachea midline, No thyromegaly. There is no evidence of raccoon eyes, romero sign, CSF rhinorrhea, mastoid tenderness, cranial crepitus, hemotympanum, exophthalmos, or hyphema. Patient demonstrates intact dentition with no signs of tooth avulsion or fracture, no signs of jaw deformity, no evidence of a LeFort's fracture, with an intact palate, nose and orbital region. There is no evidence of a nasal septal hematoma. No proptosis. Jaw closes symmetrically. Airway is clear. There is a 5 cm laceration over the left superior orbit. No active bleeding. No evidence of significant bony involvement. 4.CVS: +S1/S2, Peripheral pulses 2+ and equal in all extremities. Brisk capillary refill in all extremities. 5.RESP: Unlabored respiratory effort. Clear to auscultation bilaterally. No wheezes rales or rhonchi 6.GI: Soft, Nontender/Nondistended, No hepatosplenomegaly. No guarding or rebound. 7.MSK: Extremities w/o deformity or ttp No cyanosis or clubbing, Normal movement of all extremities. Despite this there is a hematoma by the elbow over the proximal radius. No bony tenderness though. 8.Skin: Warm, Dry. No rashes or lesions. 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 Sensation grossly intact, no focal neurologic deficits. All 6 cardinal planes of vision are fully intact. No evidence of rotatory or vertical nystagmus. The patient demonstrated a normal uipjpu-qgdq-bftlzu, good dexterity. There was no evidence of dysdiadochokinesia. Patient was able to ambulate without difficulty. There was no wide-based gait. Romberg testing was normal. Dwfq-il-rgbe testing was normal. Sensation was intact bilaterally as well as muscle strength bilaterally for all extremities. Patient was able to verbalize butter cup with no slurring, or miss pr onunciation. 10.Psych: (AAO) x3. Appropriate mood and affect Course Vital Signs Vital signs: Vital Signs Temperature 35.8 C L 06/04/25 22:42 Pulse 85 06/04/25 22:42 Respiratory Rate 16 06/04/25 22:42 Blood Pressure 172/76 H 06/04/25 22:42 Pulse Oximetry 100 06/04/25 22:42 Temperature 35.8 C L 06/04/25 22:42 Temperature Source Tympanic 06/04/25 22:42 Pulse 85 06/04/25 22:42 Respiratory Rate 16 06/04/25 22:42 Blood Pressure 172/76 H 06/04/25 22:42 Blood Pressure Position Sitting 06/04/25 22:42 Pulse Oximetry 100 06/04/25 22:42 Oxygen Delivery Method Room Air 06/04/25 22:42 Oxygen Flow Rate 0 06/04/25 22:42 Procedure Laceration Laceration 1: Date of Procedure: 06/04/25 Time of procedure: 23:29 Provider that performed the procedure: Darin Barrios Standard Time Out Performed: Yes Patient Consented: Verbally Site: face Side (If applicable): left Description: linear (5 cm) Depth: simple, single layer Local anesthetic: Lidocaine 1% and with Epi Amount of anesthesia used (mL): 4 Pre-repair:: wound explored, irrigated extensively and deep structures intact Skin layer closed with: nylon Suture size: 6-0 Number of sutures:: 6 Medical Decision Making This is a pleasant 45-year-old female who presents today for laceration of her left brow. She was at work when she slipped and fell and hit her brow on the bar at work. She developed immediate laceration to the left brow with bleeding. No loss of consciousness. She also hit and bruised her right elbow. She denies any numbness or tingling. No fever or chills. No vision changes. Tetanus is updated in 2015. No other complaints at this time. No headache or neck pain. No chest pain. No vomiting or diarrhea. She is not on any blood thinners. Exam demonstrates well-appearing female with a 5 cm laceration to her left brow, and a hematoma over her left elbow. Will get x-ray to rule out fracture of the elbow. She is on no blood thinners, she had no loss consciousness. No significant bony tenderness over the brow. Symptoms appear inconsistent with intracranial hemorrhage, subdural or epidural hematoma. She has no focal neurologic deficits, no headache, no loss of consciousness or other concerning red flags. The area will be cleaned and anesthetized and sutured. Tetanus will be updated since it has been 10 years since her last. Will monitor closely and reassess. 11:30 PM Patient was sutured with 6 simple interrupted sutures. She tolerated this well. X-ray negative for acute process or fracture on her arm. Patient's tetanus is updated. Patient be discharged home. Discussed red flags which return. I have extensively reviewed the treatment plan and discharge instructions with the patient. I have addressed all patient concerns at this time. The patient was made aware of what symptoms to monitor for that would warrant a return to the emergency department. Discussed the plan with the patient, they demonstrate verbal understanding and agreement with our assessment and plan at this time. The documentation in this chart was dictated using [employer] dictation software. Please excuse any dictation errors. FINDINGS: Bones/joints: Bone mineralization is age-appropriate. There is no evidence of fracture. No evidence of dislocation. The joint spaces are adequately preserved; no significant degenerative narrowing and no bony erosion seen. Soft tissues: No radiopaque foreign body present. There is soft tissue swelling present at the proximal ulnar region. IMPRESSION: 1. No acute osseous abnormality. 2. There is soft tissue swelling present at the proximal ulnar region. Thank you for allowing us to participate in the care of your patient. Dictated and Authenticated by: Kyrie Huber MD 06/04/2025 11:24 PM Eastern Time ([place] & [place]) [facility] All Active Problems (Updated 06/04/25 @ 23:29 by Darin Barrios DO) Hematoma of right elbow (Acute) Laceration of left orbit (Acute) Obesity (BMI 30.0-34.9) (Acute) Electrolyte and fluid disorder (Acute) Cellulitis (Acute) Vulvitis (Acute) Urinary incontinence (Acute) GERD (gastroesophageal reflux disease) (Chronic ~09/2023) [facility] Erosive esophagitis (Acute ~08/22/23) Hiatal hernia (Chronic ~08/22/23) 2cm in diameter Erosive gastropathy (Acute ~08/22/23) Joint pain (Acute) Fatigue (Acute) Tick bite (Acute) Abdominal pain, right upper quadrant (Acute) Well woman exam with routine gynecological exam (Acute) Amenorrhea (Acute) Perimenopause (Acute) Hyperhidrosis of palms (Acute) Raynaud phenomenon (Acute) Tinea pedis (Acute) Dense breasts (Acute) Cervical radiculopathy (Acute) Irritable bowel (Chronic) 06/12/23 Saw [facility] Tobacco use (Acute 03/03/16) Situational anxiety (Acute 11/12/17) Hypertriglyceridemia (Acute 03/03/16) Medical History (Updated 06/04/25 @ 23:29 by Darin Barrios DO) Abnormal findings on esophagogastroduodenoscopy (EGD) (~08/22/23) Dr Oliver [facility] Epigastric pain with RUQ pain; 06/12/23 [facility], EGD planned Tendonitis of long head of biceps brachii of right shoulder Rotator cuff syndrome of right shoulder Paresthesias in left hand (06/19/18) 05/2018 s/p eval by neurology. Pt to be eval by Ortho. Treated with ulnar nerve decompression and transposition - s/p 08/13/18 Abnormal uterine bleeding (AUB) Secondary to Nexplanon device. Normal endometrial biopsy. Bleeding resolved after Nexplanon removed. Cubital tunnel syndrome on left s/p ulnar nerve decompression transposition - 08/13/18 Surgical History (Updated 12/30/24 @ 08:55 by Eliane Burkett) History of colonoscopy (~12/2024) History of esophagogastroduodenoscopy (EGD) (08/22/23) Dr Oliver,[facility] w/biopsy Status post decompression of ulnar nerve at elbow Date of surgery 08/13/[address] Navarro History of dilation and curettage History of right salpingo-oophorectomy Endometrial Biopsy (05/16/18) For evaluation of abnormal uterine bleeding with Nexplanon in place. Family History Mother Depression Breast cancer Hypertension Father Depression Hyperlipidemia Hypertension Sister , age 24 Substance abuse Depression Maternal Grandmother Breast cancer Paternal Grandmother , age 67 Breast cancer Lung cancer Sister Alcohol use disorder Depression Substance abuse Daughter Depression Anxiety Daughter No problems noted. Social History Smoking/Tobacco Use Status: Former Tobacco Use tobacco type: cigarettes Quit Date: 11/05/21 Tobacco: How many years used: 21 Quit status: has quit before Second Hand Exposure: No Smoking risk assessment performed?: Yes Alcohol Intake: current Alcohol Intake frequency: holidays/special occasions only Alcohol type: beer Details: monthly or less, 1-2 t a time Drug use: Rarely Substance use type: marijuana Counseling given: No Adopted: No Caregiver/Support person: No Foster care: No Household members: spouse and children Housing: house Number of Children: 2 number of grandchildren: 0 Communication Needs: None Education Level: high school Do you need help understanding health information?: Rarely 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 - [employer] Pets and animals: Yes (1) Pets and animals: cat(s) Sexually active: Yes Do you think of yourself as: straight/heterosexual Current gender identity: female What is your relationship status?: living with partner How often do you talk on the phone with friends or family?: once per week How often do you get together with friends or relatives?: once per week How often do you attend mormonism or methodist services?: 1-3 times per year Do you belong to any clubs or organized social groups?: decline to answer Panel score (0-1 are the most socially isolated patients): 1 What type of physical activity do you participate in: walking Duration: 30-45 minutes/day Frequency: 3-4 times per week Jennifer/Synagogue: None Special jennifer needs: No Seatbelt use: always Helmet use: Yes Helmet use: sometimes Drive intox or ride w/intox national dedicated truck driver: No Do you feel safe at home: Yes Do you feel safe in your relationship?: Yes Female Reproductive History Menstrual control method: none History History 3 Para Hx # Term Pregnancies 2 Multiple births Hx # Pregnancies Ectopic pregnancies AB induced Hx Number of Living Children AB spontaneous
--- NOTE | 2025-06-04 23:11 | DI.RAD_ITS ---
Exam(s) XR ELBOW RT COMPLETE EXAM: XR ELBOW RT COMPLETE CLINICAL HISTORY: fall, pain/swelling at prox ulna. TECHNIQUE: 2D digital imaging was performed. COMPARISON: No exams were available for comparison FINDINGS: 3 views There is soft tissue swelling of the dorsal aspect of proximal forearm. There is no radiopaque foreign body. There is no evidence of fracture. No elbow joint effusion and no swelling of the olecranon bursa. Radial head and neck appear unremarkable as do the epicondyles. No degenerative changes in the elbow joint and there are no loose intra-articular bodies. IMPRESSION: No acute osseous findings in the elbow. Soft tissue swelling over the dorsal aspect of the proximal forearm. DATA REPOSITORY: RADIATION DOSE DELIVERED:
--- NOTE | 2025-06-04 23:24 | DI.VRAD_ITS ---
PROCEDURE INFORMATION: Exam: XR Right Elbow Exam date and time: 06/04/2025 11:09 PM Age: 45 years old Clinical indication: Injury or trauma; Work related; Blunt trauma (contusions or hematomas); Elbow; Right; Injury date: 06/04/25; Fall, pain/swelling at prox ulna TECHNIQUE: Imaging protocol: Radiologic exam of the right elbow. Views: 3 or more views. COMPARISON: CR XR SHOULDER RT COMPLETE 2+V 04/27/2021 1:08 PM FINDINGS: Bones/joints: Bone mineralization is age-appropriate. There is no evidence of fracture. No evidence of dislocation. The joint spaces are adequately preserved; no significant degenerative narrowing and no bony erosion seen. Soft tissues: No radiopaque foreign body present. There is soft tissue swelling present at the proximal ulnar region. IMPRESSION: 1. No acute osseous abnormality. 2. There is soft tissue swelling present at the proximal ulnar region. Dictated and Authenticated by: Kyrie Huber MD. Orderin Denis Webster MD
[2025-06-04] MEDS: Diph,Pertuss(Acell),Tet Vac/Pf 0.5 ML SYR IM (23:29)
== END 2025-06-04 23:33 | disposition home or self-care (01) ==
PROVIDERS: Emergency Provider Student in an Organized Health Care Education/Training Program; PCP Nurse Practitioner
DX: S01.112A Laceration without foreign body of left eyelid and periocular area, initial encounter (principal); S50.01XA Contusion of right elbow, initial encounter; Z23 Encounter for immunization; W01.190A Fall on same level from slipping, tripping and stumbling with subsequent striking against furniture, initial encounter; Y93.89 Activity, other specified; Y92.69 Other specified industrial and construction area as the place of occurrence of the external cause; Y99.0 Civilian activity done for income or pay; Z87.891 Personal history of nicotine dependence
CPT/HCPCS: 12013; 90471; 90715; 99283; 73080

== ENCOUNTER 2025-08-02 19:44 | Emergency (ER) | payer OTHER, SELFPAY ==
[2025-08-02 19:51] VITALS: BP 121/67; PULSE 87; RESP 20; TEMP 36.7; O2SAT 98
[2025-08-02 19:55] VITALS: BP 121/67; PULSE 87; RESP 20; TEMP 36.7; O2SAT 98
[2025-08-02 20:05] VITALS: RESP 18
--- NOTE | 2025-08-02 20:30 | ED.GENADUL_ITS ---
Discharge Plan Disposition Patient Disposition: Home Condition: Good Discharge Details Clinical Impression: Abrasion of left cornea Primary Care Provider: Susanna Coates ED Provider: Darin Barrios Home Meds and New Rx's Prescriptions: No Action clotrimazole-betamethasone 1-0.05 % cream 1 applic topical BID 14 Days Qty: 45 1RF Rx Instructions: apply to vulva twice daily Metamucil (sugar) Powder 1 tbsp PO DAILY PRN atorvastatin 20 mg tablet 20 mg PO QPM Qty: 90 3RF cyclobenzaprine 5 mg tablet 5 mg PO TID PRN (Reason: muscle spasm) Qty: 60 1RF Rx Instructions: Take 1 tablet by mouth three times a day as needed for neck pain sertraline 50 mg tablet 75 mg PO DAILY Qty: 135 3RF Women's One Daily 1 EACH tablet 1 tab-cap PO DAILY tirzepatide 12.5 mg/0.5 mL pen injector 12.5 mg subcut QWEEK Qty: 2 5RF Rx Instructions: PLEASE FILL FOR ZEPBOUND.Patient is not Diabetic Discharge Instructions Instructions: Corneal Abrasion ED Additional Instructions: At this time you have a corneal abrasion of your left eye, however I no longer see any other foreign body. Please apply the erythromycin ointment every 4-6 hours as needed. Please apply immediately before going to bed. It would also be lorenzo to apply it in the morning when you wake up. Please follow-up closely with your eye doctor for reassessment. If you notice any worsening of your symptoms, or any new symptoms such as vomiting, diarrhea, fever, chills, shortness of breath, chest pain, numbness, weakness, or fainting , please return immediately to the emergency department for reevaluation. Please follow up with your primary care provider as soon as possible for reassessment and reevaluation. As always, it was a pleasure participating in your medical care today. Referrals: Susanna Coates NP [Primary Care Provider, Medicine] HPI General Date/Time Provider Initiated Documentation: 08/02/25 19:54 . HPI Narrative: This is a pleasant 45-year-old female who presents today for irritation in her left eye. Patient states that earlier today she was at [employer] and she felt that something got into her eye, she rubbed it scratched and tried to wash it out multiple times but the symptoms and pain persist. She describes it as being in the medial aspect of her eye, feeling like there is an irritant present. She denies any vision changes. She denies any welding. She has worn contact lenses in the distant past but has been a few weeks. She does not wear them currently as they cause eye irritation. She denies any history of glaucoma. No trauma. No other complaints at this time. Related Data Home Medications ?Medication ?Instructions ?Recorded ?Confirmed [id number] 27 1 tab-cap PO DAILY 08/02/25 mg-0.4 mg tablet (Women's One Daily) clotrimazole-betamethasone 1 1 applic topical BID 2 we eks #45 11/21/23 08/02/25 %-0.05 % topical cream grams psyllium seed (sugar) oral powder 1 tbsp PO DAILY PRN 10/13/24 08/02/25 (Metamucil (sugar) oral powder) atorvastatin 20 mg tablet 20 mg PO QPM #90 tabs 08/02/25 tirzepatide 12.5 mg/0.5 mL 12.5 mg (0.5 mL) subcut QWE EK #2 mL 03/24/25 08/02/25 subcutaneous pen injector cyclobenzaprine 5 mg tablet 5 mg PO TID PRN muscle spa sm #60 06/12/25 08/02/25 tabs sertraline 50 mg tablet 75 mg (1.5 x 50 mg) PO DAILY 06/12/25 08/02/25 Depression #135 tabs Previous Rx's ?Medication ?Instructions ?Recorded clotrimazole-betamethasone 1 1 applic topical BID 2 we eks #45 11/21/23 %-0.05 % topical cream grams atorvastatin 20 mg tablet 20 mg PO QPM #90 tabs tirzepatide 12.5 mg/0.5 mL 12.5 mg (0.5 mL) subcut QWE EK #2 mL 03/24/25 subcutaneous pen injector cyclobenzaprine 5 mg tablet 5 mg PO TID PRN muscle spa sm #60 06/12/25 tabs sertraline 50 mg tablet 75 mg (1.5 x 50 mg) PO DAILY 06/12/25 Depression #135 tabs Allergies Allergy/AdvReac Type Severity Reaction Status Date / Time No Known Allergies Allergy Verified 08/02/25 20:05 General Stated Complaint: EyeProblem MINH: 4 Exam Narrative Exam Narrative: 1.Const: Well-nourished, Well-developed, appearing stated age 2.Eyes: Left eye: EOMI, PERRL, Peripheral vision intact. No nystagmus. No clinical signs of septal/orbital cellulitis, no redness around the eye, no proptosis. No hyphema, no signs of trauma around the eye, no periorbital emphysema. No sluggishness of the pupil. No ophthalmoplegia. No afferent pupillary defect. Fluorescein exam is positive for corneal abrasion with evidence of a broad abrasion over the medial aspect of the iris with extension and 2 mm above and below the level of the pupil, negative Anabela sign. Visual acuity as documented in chart. Eversion of the upper and lower lid shows no evidence of retained foreign body 3.ENT: Atraumatic external nose and ears. Moist MM. Neck: Symmetric, trachea midline, No thyromegaly. 4.CVS: +S1/S2, Peripheral pulses 2+ and equal in all extremities. Brisk capillary refill in all extremities. 5.RESP: Unlabored respiratory effort. Clear to auscultation bilaterally. No wheezes rales or rhonchi 6.GI: Soft, Nontender/Nondistended, No hepatosplenomegaly. No guarding or rebound. 7.MSK: Normocephalic/Atraumatic, Extremities w/o deformity or ttp No cyanosis or clubbing, Normal movement of all extremities 8.Skin: Warm, Dry. No rashes or lesions. 9.Neuro: telephonic nurse II-XII grossly intact. Sensation grossly intact, no focal neurologic deficits. 10.Psych: (AAO) x3. Appropriate mood and affect Course Vital Signs Vital signs: Vital Signs Temperature 36.7 C 08/02/25 19:51 Pulse 87 08/02/25 19:51 Respiratory Rate 20 08/02/25 19:51 Blood Pressure 121/67 08/02/25 19:51 Pulse Oximetry 98 08/02/25 19:51 Temperature 36.7 C 08/02/25 19:55 Temperature Source Temporal Artery Scan 08/02/25 19:55 Pulse 87 08/02/25 19:55 Respiratory Rate 18 08/02/25 20:05 Respiratory Effort Normal, Non-Labored 08/02/25 20:05 Respiratory Depth Normal 08/02/25 20:05 Respiratory Pattern Normal 08/02/25 20:05 Blood Pressure 121/67 08/02/25 19:55 Blood Pressure Position Sitting 08/02/25 19:55 Pulse Oximetry 98 08/02/25 19:55 Oxygen Delivery Method Room Air 08/02/25 20:05 Oxygen Flow Rate 0 08/02/25 20:05 Pain Level 10 08/02/25 19:55 Medical Decision Making This is a pleasant 45-year-old female who presents today for irritation in her left eye. Patient states that earlier today she was at [employer] and she felt that something got into her eye, she rubbed it scratched and tried to wash it out multiple times but the symptoms and pain persist. She describes it as being in the medial aspect of her eye, feeling like there is an irritant present. She denies any vision changes. She denies any welding. She has worn contact lenses in the distant past but has been a few weeks. She does not wear them currently as they cause eye irritation. She denies any history of glaucoma. No trauma. No other complaints at this time. Fluorescein exam is positive for corneal abrasion with evidence of a broad abrasion over the medial aspect of the iris with extension and 2 mm above and below the level of the pupil, negative Anabela sign. Visual acuity as documented in chart. Eversion of the upper and lower lid shows no evidence of retained foreign body Symptoms consistent with mild superficial corneal abrasion. Patient does not wear contact lenses regularly, and only did once or twice. This was in the distant past. No evidence to suggest pseudomonal infection at this time. No evidence of infection in general. Suspect symptomatology secondary to corneal abrasion which may have been an eyelash that was stuck for time but at this time is not visualized. Will give erythromycin ointment not for antibacterial properties, but rather for soothing effect. Patient does have follow-up with her eye doctor tomorrow. Will encourage continued close follow-up. Otherwise discussed red flags for which to return. I have extensively reviewed the treatment plan and discharge instructions with the patient. I have addressed all patient concerns at this time. The patient was made aware of what symptoms to monitor for that would warrant a return to the emergency department. Discussed the plan with the patient, they demonstrate verbal understanding and agreement with our assessment and plan at this time. The documentation in this chart was dictated using [employer] dictation software. Please excuse any dictation errors. [facility] All Active Problems (Updated 08/02/25 @ 20:31 by Darin Barrios DO) Abrasion of left cornea (Acute) Laceration of eyebrow, left (Acute) Obesity (BMI 30.0-34.9) (Acute) Electrolyte and fluid disorder (Acute) Cellulitis (Acute) Vulvitis (Acute) Urinary incontinence (Acute) GERD (gastroesophageal reflux disease) (Chronic ~09/2023) [facility] Erosive esophagitis (Acute ~08/22/23) Hiatal hernia (Chronic ~08/22/23) 2cm in diameter Erosive gastropathy (Acute ~08/22/23) Joint pain (Acute) Fatigue (Acute) Tick bite (Acute) Abdominal pain, right upper quadrant (Acute) Well woman exam with routine gynecological exam (Acute) Amenorrhea (Acute) Perimenopause (Acute) Hyperhidrosis of palms (Acute) Raynaud phenomenon (Acute) Tinea pedis (Acute) Dense breasts (Acute) Cervical radiculopathy (Acute) Irritable bowel (Chronic) 06/12/23 Saw [facility] Tobacco use (Acute 03/03/16) Situational anxiety (Acute 11/12/17) Hypertriglyceridemia (Acute 03/03/16) Medical History (Updated 08/02/25 @ 20:31 by Darin Barrios DO) Abnormal findings on esophagogastroduodenoscopy (EGD) (~08/22/23) Dr Oliver [facility] Epigastric pain with RUQ pain; 06/12/23 [facility], EGD planned Tendonitis of long head of biceps brachii of right shoulder Rotator cuff syndrome of right shoulder Paresthesias in left hand (06/19/18) 05/2018 s/p eval by neurology. Pt to be eval by Ortho. Treated with ulnar nerve decompression and transposition - s/p 08/13/18 Abnormal uterine bleeding (AUB) Secondary to Nexplanon device. Normal endometrial biopsy. Bleeding resolved after Nexplanon removed. Cubital tunnel syndrome on left s/p ulnar nerve decompression transposition - 08/13/18 Surgical History (Updated 12/30/24 @ 08:55 by Eliane Burkett) History of colonoscopy (~12/2024) History of esophag[facility]astroduodenoscopy (EGD) (08[facility]22/23[facility] Status post decompression of ulnar nerve at elbow Date of surgery 08/13/[address] Navarro History of dilation and curettage History of right salpingo-oophorectomy Endometrial Biopsy (05/16/18) For evaluation of abnormal uterine bleeding with Nexplanon in place. Family History Mother Depression Breast cancer Hypertension Father Depression Hyperlipidemia Hypertension Sister , age 24 Substance abuse Depression Maternal Grandmother Breast cancer Paternal Grandmother , age 67 Breast cancer Lung cancer Sister Alcohol use disorder Depression Substance abuse Daughter Depression Anxiety Daughter No problems noted. Social History Smoking/Tobacco Use Status: Former Tobacco Use tobacco type: cigarettes Quit Date: 11/05/21 Tobacco: How many years used: 21 Quit status: has quit before Second Hand Exposure: No Smoking risk assessment performed?: Yes Alcohol Intake: current Alcohol Intake frequency: holidays/special occasions only Alcohol type: beer Details: monthly or less, 1-2 t a time Drug use: Rarely Substance use type: marijuana Counseling given: No Adopted: No Caregiver/Support person: No Foster care: No Household members: spouse and children Housing: house Number of Children: 2 number of grandchildren: 0 Communication Needs: None Education Level: high school Do you need help understanding health information?: Rarely 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 - [employer] Pets and animals: Yes (1) Pets and animals: cat(s) Sexually active: Yes Do you think of yourself as: straight/heterosexual Current gender identity: female What is your relationship status?: living with partner How often do you talk on the phone with friends or family?: once per week How often do you get together with friends or relatives?: once per week How often do you attend islam or anabaptist services?: 1-3 times per year Do you belong to any clubs or organized social groups?: decline to answer Panel score (0-1 are the most socially isolated patients): 1 What type of physical activity do you participate in: walking Duration: 30-45 minutes/day Frequency: 3-4 times per week Jennifer/Church: None Special jennifer needs: No Seatbelt use: always Helmet use: Yes Helmet use: sometimes Drive intox or ride w/intox services delivery driver: No Do you feel safe at home: Yes Do you feel safe in your relationship?: Yes Female Reproductive History Menstrual control method: none History History 3 Para Hx # Term Pregnancies 2 Multiple births Hx # Pregnancies Ectopic pregnancies AB induced Hx Number of Living Children AB spontaneous
[2025-08-02] MEDS: Erythromycin Ophth Oint 3.5 GM TUBE (20:36)
[2025-08-02] MEDS: Tetracaine 0.5% 4 ML BTL (20:37)
[2025-08-02] MEDS: Fluorescein STRIPS 100/BOX 1 MG (20:37)
== END 2025-08-02 20:44 | disposition home or self-care (01) ==
PROVIDERS: Emergency Provider Student in an Organized Health Care Education/Training Program; PCP Nurse Practitioner
DX: S05.02XA Injury of conjunctiva and corneal abrasion without foreign body, left eye, initial encounter (principal); X58.XXXA Exposure to other specified factors, initial encounter
CPT/HCPCS: 99283 ×2